=== PATIENT | male | born 1945 | race Caucasian/White ===

== ENCOUNTER 2016-11-29 10:01 | Inpatient (IN) | payer OTHER, BC ==
[2016-11-29 10:08] VITALS: BMI 31.1
--- NOTE | 2016-11-29 10:52 | PDOC ---
History of Present Illness - General Chief Complaint: Urinary Problem Stated Complaint: LOWER PELVIC PAIN, DIFFICULTY URINATING Time Seen by Provider: 11/29/16 10:28 History Source: Patient - History of Present Illness Timing/Duration: reports: constant, getting worse Quality: reports: other (pressure) Past History - Past Medical History Allergies/Adverse Reactions: Allergies Allergy/AdvReac Type Severity Reaction Status Date / Time No Known Drug Allergies Allergy Verified 11/29/16 10:07 Home Medications: Ambulatory Orders Tamsulosin HCl [Flomax] 0.4 mg PO HS 05/26/12 Amlodipine Besylate 5 mg PO DAILY 10/03/15 Anemia: No Asthma: No Cancer: Yes (PROSTATE CA WITH RADIATION) Cardiac Disorders: No CVA: No COPD: No CHF: No Dementia: No Diabetes: No GI Disorders: No Disorders: No HTN: No Hypercholesterolemia: No Liver Disease: No Seizures: No Thyroid Disease: No - Surgical History Abdominal Surgery: No Appendectomy: No Cardiac Surgery: No Cholecystectomy: Yes Lung Surgery: No Neurologic Surgery: No Orthopedic Surgery: Yes (left ankle fx as a teenager) - Psycho/Social/Smoking Cessation Hx Anxiety: No Suicidal Ideation: No Smoking History: Never smoked Have you smoked in the past 12 months: No Hx Alcohol Use: No Drug/Substance Use Hx: No Substance Use Type: None Hx Substance Use Treatment: No Review of Systems - Review of Systems Constitutional: No: Chills, Fever ABD/GI: No: Nausea, Vomiting : No: Flank Pain, Hematuria, Testicular Mass, Testicular Swelling, Testicular Pain Musculoskeletal: No: Back Pain *Physical Exam - Vital Signs Last Vital Signs Temp Pulse Resp BP Pulse Ox 98.0 F 99 H 20 123/76 97 11/29/16 10:04 11/29/16 10:04 11/29/16 10:04 11/29/16 10:04 11/29/16 10:04 - Physical Exam General Appearance: Yes: Appropriately Dressed, Moderate Distress HEENT: positive: Normal Voice Neck: positive: Supple Respiratory/Chest: negative: Respiratory Distress Gastrointestinal/Abdominal: positive: Tender (to lower abd), Soft Musculoskeletal: negative: CVA Tenderness Integumentary: positive: Dry, Warm Neurologic: positive: Fully Oriented, Alert, Normal Mood/Affect ED Treatment Course - LABORATORY CBC & Chemistry Diagram: 11/29/16 11:11/29/16 12:30 Medical Decision Making - Medical Decision Making 71 yo M, h/o prostate cancer in 2006 s/p external beam radiation w/ recurrence 2014 s/p salvage cryotherapy, f/u at [facility], here w/ urinary retention . Pt's last UO was yesterday evening and has not been able to go despite urge. No c/o lower abd pressure and n/v. No flank pain, f/c. See exam Urinary retention in pt w/ h/o prostate cancer s/p surgery/xrt Appears uncomfortable in ED but stable +ttp to lower abd w/ no distention R/o uti -jay -labs - -admit 11/29/16 10:52 11/29/16 13:[address] Paul at bedside, performed bedside ultrasound showing collapsing bladder around jay which now had ~ 800cc of tea colored urine. As per M.D, if labs are normal, patient can be discharged, otherwise admit. 11/29/16 13:43 Cr 2.8, usually nl as per pt. No old to compare in system. Wbc 15 w/ shift. Dose of abx in progress. Will contact hospitalist and admit at this time. Dr Paul aware of update *DC/Admit/Observation/Transfer Diagnosis at time of Disposition: Urinary retention UTI (urinary tract infection) Qualifiers: Urinary tract infection type: acute cystitis Hematuria presence: without hematuria Qualified Code(s): N30.00 - Acute cystitis without hematuria - Discharge Dispostion Condition at time of disposition: Stable Admit: Yes - Referrals Referrals: Trish Yu [Primary Care Provider] -
[2016-11-29 11:16] LABS: BASOPHIL 0.4 % (0-2.0); MCH 30.5 pg (25.7-33.7); MCHC 33.7 g/dl (32.0-35.9); MEAN CELL VOLUME 90.6 fl (80-96); MEAN PLT VOLUME 8.8 fl (7.5-11.1); NEUTROPHILS 84.9 % (42.8-82.8); PLATELET COUNT 164 K/MM3 (134-434); WHITE BLOOD COUNT 15.6 K/mm3 (4.0-10.0)
[2016-11-29] MEDS ORDERED: morphine CARPU-JECT 4 MG/1 ML DISP.SYRIN IVPUSH ONE (11:20)
[2016-11-29] MEDS ORDERED: morphine CARPU-JECT 4 MG/1 ML DISP.SYRIN ONE (11:25)
[2016-11-29] MEDS ORDERED: CEFTRIAXONE 1 GM in DEXTROSE 5%-WATER - 50 ML IVPB ONE (11:44)
[2016-11-29] MEDS ORDERED: CEFTRIAXONE 50 ML ONE (11:54)
[2016-11-29 11:59] LABS: URINE APPEARANCE TURBID; URINE BILIRUBIN NEGATIVE (NEGATIVE); URINE COLOR YELLOW; URINE GLUCOSE (UA) 1+ (NEGATIVE); URINE KETONE NEGATIVE (NEGATIVE); URINE NITRITE NEGATIVE (NEGATIVE); URINE UROBILINOGEN NEGATIVE E.U./dl (0.2-1.0)
[2016-11-29 12:00] LABS: URINE BLOOD 3+ (NEGATIVE); URINE LEUK ESTERASE 3+ (NEGATIVE); URINE PROTEIN 2+ (NEGATIVE)
--- NOTE | 2016-11-29 12:30 | CON.GU ---
Consult - History of Present Illness History of Present Illness: 71 yo male with prostate cancer s/p XRT 2007, s/p cryo in 2015 for recurrence. Most recent psa very low. Now admitted with urinary retention. 14fr jay placed -approximately 200cc of urine retrieved. Patient currently feeling better. No fever/chills/N/V. WBC 15 - Alcohol/Substance Use Hx Alcohol Use: No - Smoking History Smoking history: Never smoked Have you smoked in the past 12 months: No Home Medications - Allergies Allergies/Adverse Reactions: Allergies Allergy/AdvReac Type Severity Reaction Status Date / Time No Known Drug Allergies Allergy Verified 11/29/16 10:07 - Home Medications Home Medications: Ambulatory Orders Tamsulosin HCl [Flomax] 0.4 mg PO HS 05/26/12 Amlodipine Besylate 5 mg PO DAILY 10/03/15 Physical Exam- Vital Signs: Vital Signs Temperature 98.0 F 11/29/16 10:04 Pulse Rate 70 11/29/16 12:23 Respiratory Rate 17 11/29/16 12:23 Blood Pressure 127/75 11/29/16 12:23 O2 Sat by Pulse Oximetry (%) 97 11/29/16 12:23 Labs: CBC, BMP 11/29/16 11:01 11/29/16 11:01 Problem List - Problems (1) Urinary retention Assessment/Plan: cont jay to drainage, disposition pending the results of chemistries Code(s): R33.9 - RETENTION OF URINE, UNSPECIFIED
[2016-11-29 12:43] LABS: URINE BACTERIA MANY /hpf (NONE SEEN); URINE MUCUS RARE; URINE RBC 615 /hpf (0-3); URINE WBC 2070 /hpf (3-5)
[2016-11-29 13:22] LABS: ALBUMIN 3.1 g/dl (3.4-5.0); BILIRUBIN,TOTAL 0.7 mg/dL (0.2-1.0); CALCIUM 8.1 mg/dL (8.5-10.1); CREATININE 2.8 mg/dL (0.7-1.3); TOT PROT 6.4 g/dl (6.4-8.2)
[2016-11-29] MEDS ORDERED: SODIUM CHLORIDE 500 ML IV STA (13:35)
--- NOTE | 2016-11-29 14:15 | HP ---
CHIEF COMPLAINT: unable to urinate for day and a half PCP: Dr. Yu Urologist: Dr. Escalona HISTORY OF PRESENT ILLNESS: 71 yr old man with a history of prostate cancer, hx of UTI, HTN presents with decreased urine output since yesterday. For past three days he has been having lower back pain which is his sign for developing UTI. He woke up multiple times last night with urgency and strain but no urine output. He had stopped drinking water for past day as he was making less and and less urine with more urgency and suprapubic pain. Had two episodes of nonbloody nonbilous small amount of vomiting earlier today. Took "Contac" to prevent cold about 1 month ago, says he stopped when warning label indicated not take if hx of prostate inflammed, otherwise denies any new food or medicine. Denies fever, chills, penile discharge, recent aspirin/aleve/motrin use. Has not been sexually active for past year due to decreased libido. does not recall last UTI or last antibiotic use. recalls last time this happened , he had a jay placed for a week. ER course was notable for: (1) wbc of 15.6 (2) Dr. jean-baptiste placed 14fr jay, approximately 200cc of urine retrieved. (3) Cr 2.8 Recent Travel: none PAST MEDICAL HISTORY: prostate cancer: initial dx in 2006 received radiation, reoccurrence in 2014 received cryotherapy PAST SURGICAL HISTORY: left ankle surgery in his teens cholecystectomy in his teens Colonoscopy 7 yrs ago without abnormal findings. Social History: Smoking: denies Alcohol: denies Drugs: denies Family History: brother age 58 from stroke, Father age 63 from stroke, mother age 83 from stroke Allergies No Known Drug Allergies Allergy (Verified 11/29/16 10:07) HOME MEDICATIONS: Medication Instructions Recorded Tamsulosin HCl [Flomax] 0.4 mg PO HS 05/26/12 Amlodipine Besylate 5 mg PO DAILY 10/03/15 REVIEW OF SYSTEMS CONSTITUTIONAL: Absent: fever, chills, diaphoresis, generalized weakness, malaise, loss of appetite, weight change HEENT: Absent: rhinorrhea, nasal congestion, throat pain, throat swelling, difficulty swallowing, mouth swelling, ear pain, eye pain, visual changes CARDIOVASCULAR: Absent: chest pain, syncope, palpitations, irregular heart rate, lightheadedness , peripheral edema RESPIRATORY: Absent: cough, shortness of breath, dyspnea with exertion, orthopnea, wheezing, stridor, hemoptysis GASTROINTESTINAL: Present: vomiting Absent: abdominal pain, abdominal distension, nausea, diarrhea, constipation, melena, hematochezia GENITOURINARY: Present:urgency Absent: dysuria, frequency, hesitancy, hematuria, flank pain, genital pain MUSCULOSKELETAL: Absent: myalgia, arthralgia, joint swelling, back pain, neck pain SKIN: Absent: rash, itching, pallor HEMATOLOGIC/IMMUNOLOGIC: Absent: easy bleeding, easy bruising, lymphadenopathy, frequent infections ENDOCRINE: Absent: unexplained weight gain, unexplained weight loss, heat intolerance, cold intolerance NEUROLOGIC: Absent: headache, focal weakness or paresthesias, dizziness, unsteady gait, seizure, mental status changes, bladder or bowel incontinence PSYCHIATRIC: Absent: anxiety, depression, suicidal or homicidal ideation, hallucinations. PHYSICAL EXAMINATION Vital Signs - 24 hr 11/29/16 11/29/16 10:04 12:23 Temperature 98.0 F Pulse Rate 99 H Pulse Rate [ 70 Right Radial] Respiratory 20 17 Rate Blood Pressure 123/76 Blood Pressure 127/75 [Left Arm] O2 Sat by Pulse 97 97 Oximetry (%) GENERAL: Awake, alert, and fully oriented, in no acute distress. HEAD: Normal with no signs of trauma. EYES: Pupils equal, round and reactive to light, extraocular movements intact, sclera anicteric, conjunctiva clear. No lid lag. EARS, NOSE, THROAT: Ears normal, nares patent, oropharynx clear without exudates. Moist mucous membranes. NECK: Normal range of motion, supple without lymphadenopathy, JVD, or masses. LUNGS: Breath sounds equal, clear to auscultation bilaterally. No wheezes, and no crackles. No accessory muscle use. HEART: Regular rate and rhythm, normal S1 and S2 without murmur, rub or gallop. ABDOMEN: Soft, nontender, not distended, normoactive bowel sounds, no guarding, no rebound, no masses. well healed abdominal scar in RUQ. MUSCULOSKELETAL: Normal range of motion at all joints. No bony deformities or tenderness. No CVA tenderness. well healed scar on medial left ankle. UPPER EXTREMITIES: 2+ pulses, warm, well-perfused. No cyanosis. No clubbing. Cap refill <2 seconds. No peripheral edema. LOWER EXTREMITIES: 2+ pulses, warm, well-perfused. No calf tenderness. No peripheral edema. NEUROLOGICAL: Normal speech. Normal gait. PSYCHIATRIC: Cooperative. Good eye contact. Appropriate mood and affect. SKIN: Warm, dry, normal turgor, no rashes or lesions noted. Jay in place draining dark tea colored urine. Laboratory Results - last 24 hr 11/29/16 11/29/16 11/29/16 11:01 11:01 11:52 WBC 15.6 H RBC 4.39 Hgb 13.4 Hct 39.8 MCV 90.6 MCHC 33.7 RDW 14.0 Plt Count 164 MPV 8.8 Neutrophils % 84.9 H Lymphocytes % 3.1 L Monocytes % 11.6 H Eosinophils % 0.0 Basophils % 0.4 Sodium Cancelled Potassium Cancelled Chloride Cancelled Carbon Dioxide Cancelled Anion Gap Cancelled BUN Cancelled Creatinine Cancelled Creat Clearance w eGFR Cancelled Random Glucose Cancelled Calcium Cancelled Total Bilirubin Cancelled AST Cancelled ALT Cancelled Alkaline Phosphatase Cancelled Total Protein Cancelled Albumin Cancelled Urine Color Yellow Urine Appearance Turbid Urine pH 6.0 Ur Specific [place] 1.010 Urine Protein 2+ H Urine Glucose (UA) 1+ H Urine Ketones Negative Urine Blood 3+ H Urine Nitrite Negative Urine Bilirubin Negative Urine Urobilinogen Negative Ur Leukocyte Esterase 3+ H Urine RBC 615 Urine WBC 2070 Ur Epithelial Cells Rare Urine Bacteria Many Urine Mucus Rare 11/29/16 12:30 WBC RBC Hgb Hct MCV MCHC RDW Plt Count MPV Neutrophils % Lymphocytes % Monocytes % Eosinophils % Basophils % Sodium 135 L Potassium 4.3 Chloride 100 Carbon Dioxide 22 Anion Gap 13 BUN 39 H Creatinine 2.8 H Creat Clearance w eGFR 22.45 Random Glucose 96 Calcium 8.1 L Total Bilirubin 0.7 AST 72 H ALT 35 Alkaline Phosphatase 69 Total Protein 6.4 Albumin 3.1 L Urine Color Urine Appearance Urine pH Ur Specific [place] Urine Protein Urine Glucose (UA) Urine Ketones Urine Blood Urine Nitrite Urine Bilirubin Urine Urobilinogen Ur Leukocyte Esterase Urine RBC Urine WBC Ur Epithelial Cells Urine Bacteria Urine Mucus ASSESSMENT/PLAN: 71 yr old man with hx of prostate cancer s/p treatment, hx of recurrent UTIs presents with decreased urine output for one day. #UTI with urinary retention and hematuria and leucocytosis - Jay placed by dr. ficcazola - rocephin 2gm daily --start 11/29 - renal ultrasound to r/o hydronephrosis - urine cx pending - flomax 0.4mg daily #Elevated Cr 2.8, unknown baseline, but patient says that this is not his normal value. likely post-renal cause from obstruction due to bladder retention - IVF NS 100ml/hr - urine osm, serum osm, urine Na+ to evaluate cause - repeat BMP in the AM - Dr. Cast consulted - avoid nephro toxic medications #HTN - amlodipine 5mg po daily #Hyponatremia - 135, mild, IVF NS #Corrected ca, wnl, 8.82 # AST elevated, suspicious for renal cause, will repeat in the AM, if continuos to be elevated, will investigate for live abnormality diet: low sodium DVt; SCD's for now given hematuria, no medical anticoagulation Visit type - Emergency Visit Emergency Visit: Yes ED Registration Date: 11/29/16 Care time: The patient presented to the Emergency Department on the above date and was hospitalized for further evaluation of their emergent condition. - New Patient This patient is new to me today: Yes Date on this admission: 11/29/16 - Critical Care Critical Care patient: No
[2016-11-29] MEDS ORDERED: SODIUM CHLORIDE 1,000 ML IV STA (15:28)
--- NOTE | 2016-11-29 15:37 | PN ---
Teaching Attending Note Name of Resident: Gordon Wei ATTENDING PHYSICIAN STATEMENT I saw and evaluated the patient. I reviewed the resident's note and discussed the case with the resident. I agree with the resident's findings and plan as documented. SUBJECTIVE: OBJECTIVE: Vital Signs Temperature 97.7 F 11/29/16 15:22 Pulse Rate 80 11/29/16 15:22 Respiratory Rate 18 11/29/16 15:22 Blood Pressure 129/58 11/29/16 15:22 O2 Sat by Pulse Oximetry (%) 99 11/29/16 15:22 GENERAL: Awake, alert, and fully oriented, in no acute distress. HEAD: Normal with no signs of trauma. EYES: Pupils equal, round and reactive to light, extraocular movements intact, sclera anicteric, conjunctiva clear. No lid lag. EARS, NOSE, THROAT: Ears normal, nares patent, oropharynx clear without exudates. Moist mucous membranes. NECK: Normal range of motion, supple without lymphadenopathy, JVD, or masses. LUNGS: Breath sounds equal, clear to auscultation bilaterally. No wheezes, and no crackles. No accessory muscle use. HEART: Regular rate and rhythm, normal S1 and S2 without murmur, rub or gallop. ABDOMEN: Soft, nontender, not distended, normoactive bowel sounds, no guarding, no rebound, no masses. well healed abdominal scar in RUQ. MUSCULOSKELETAL: Normal range of motion at all joints. No bony deformities or tenderness. well healed scar on medial left ankle. EXTREMITIES: 2+ pulses, warm, well-perfused. No calf tenderness. No peripheral edema. NEUROLOGICAL: Normal speech. Normal gait. PSYCHIATRIC: Cooperative. Good eye contact. Appropriate mood and affect. SKIN: Warm, dry, normal turgor, no rashes or lesions noted. Jay in place draining dark tea colored urine. CBCD WBC 15.6 K/mm3 (4.0-10.0) H 11/29/16 11:01 RBC 4.39 M/mm3 (4.00-5.60) 11/29/16 11:01 Hgb 13.4 GM/dL (11.7-16.9) 11/29/16 11:01 Hct 39.8 % (35.4-49) 11/29/16 11:01 MCV 90.6 fl (80-96) 11/29/16 11:01 MCHC 33.7 g/dl (32.0-35.9) 11/29/16 11:01 RDW 14.0 % (11.9-15.9) 11/29/16 11:01 Plt Count 164 K/MM3 (134-434) 11/29/16 11:01 MPV 8.8 fl (7.5-11.1) 11/29/16 11:01 CMP Sodium 135 mmol/L (136-145) L 11/29/16 12:30 Potassium 4.3 mmol/L (3.5-5.1) 11/29/16 12:30 Chloride 100 mmol/L (98-107) 11/29/16 12:30 Carbon Dioxide 22 mmol/L (21-32) 11/29/16 12:30 Anion Gap 13 (8-16) 11/29/16 12:30 BUN 39 mg/dL (7-18) H 11/29/16 12:30 Creatinine 2.8 mg/dL (0.7-1.3) H 11/29/16 12:30 Creat Clearance w eGFR 22.45 (>60) 11/29/16 12:30 Random Glucose 96 mg/dL (74-106) 11/29/16 12:30 Calcium 8.1 mg/dL (8.5-10.1) L 11/29/16 12:30 Total Bilirubin 0.7 mg/dL (0.2-1.0) 11/29/16 12:30 AST 72 U/L (15-37) H 11/29/16 12:30 ALT 35 U/L (12-78) 11/29/16 12:30 Alkaline Phosphatase 69 U/L (45-117) 11/29/16 12:30 Total Protein 6.4 g/dl (6.4-8.2) 11/29/16 12:30 Albumin 3.1 g/dl (3.4-5.0) L 11/29/16 12:30 Current Medications Generic Name Dose Route Start Last Admin Trade Name Freq PRN Reason Stop Dose Admin Amlodipine Besylate 5 mg 11/30/16 10:00 Norvasc - PO DAILY MARCELO Enoxaparin Sodium 40 mg 11/30/16 10:00 Lovenox - SQ DAILY MARCELO Sodium Chloride 1,000 mls @ 1,000 mls/hr 11/29/16 15:28 Normal Saline - IV 11/29/16 16:27 ASDIR STA Tamsulosin HCl 0.4 mg 11/29/16 22:00 Flomax - PO HS [facility] Medication Instructions Recorded Tamsulosin HCl [Flomax] 0.4 mg PO HS 05/26/12 Amlodipine Besylate 5 mg PO DAILY 10/03/15 Urine Test Results Urine Color Yellow 11/29/16 11:52 Urine Appearance Turbid 11/29/16 11:52 Urine pH 6.0 (5.0-8.0) 11/29/16 11:52 Ur Specific [place] 1.010 (1.001-1.035) 11/29/16 11:52 Urine Protein 2+ (NEGATIVE) H 11/29/16 11:52 Urine Glucose (UA) 1+ (NEGATIVE) H 11/29/16 11:52 Urine Ketones Negative (NEGATIVE) 11/29/16 11:52 Urine Blood 3+ (NEGATIVE) H 11/29/16 11:52 Urine Nitrite Negative (NEGATIVE) 11/29/16 11:52 Urine Bilirubin Negative (NEGATIVE) 11/29/16 11:52 Ur Leukocyte Esterase 3+ (NEGATIVE) H 11/29/16 11:52 Urine RBC 615 /hpf (0-3) 11/29/16 11:52 Urine WBC 2070 /hpf (3-5) 11/29/16 11:52 Ur Epithelial Cells Rare /hpf (FEW) 11/29/16 11:52 Urine Bacteria Many /hpf (NONE SEEN) 11/29/16 11:52 Urine Mucus Rare 11/29/16 11:52 ASSESSMENT AND PLAN: Patient is a 71 yo M, with h/o prostate cancer in 2006 s/p external beam radiation w/ recurrence 2014 s/p salvage cryotherapy, presented to ED. w/ urinary retention . Patient last urinated yesterday evening and has not been able to go despite urge. presented with difficulty to urinate and was found to have 800cc of urine post jay catheter # Acute UTI with acute leukocytosis septic w/u . hx of recurrent UTIs. with hx if rtx due to his prostate Ca , ivf at 100cc/hr # Hematuria possible due to jay catheter # Obtructive uropathy s/p Jay catheter with 800cc of urine Dr.ficazolla consult appreciated #Acute renal failure cr. 1.8 due to obstructive uropathy will get Kidney US r/o any kidney pathology/hydronephrosis nephro consult DVT Px: SCDs only, patient has hematuria ; will hold off on anticoagulation for now
[2016-11-29] MEDS: TAMSULOSIN HCL 0.4 MG CAP.ER.24H (FP) PO SCH (21:35)
[2016-11-29] MEDS: SODIUM CHLORIDE 1,000 ML IV SCH (21:36)
[2016-11-30 07:18] LABS: BASOPHIL 0.5 % (0-2.0); EOSINOPHIL 0.5 % (0-4.5); MCH 31.4 pg (25.7-33.7); MCHC 34.7 g/dl (32.0-35.9); MEAN CELL VOLUME 90.5 fl (80-96); MEAN PLT VOLUME 9.3 fl (7.5-11.1); PLATELET COUNT 180 K/MM3 (134-434); RDW 14.4 % (11.9-15.9); WHITE BLOOD COUNT 10.4 K/mm3 (4.0-10.0)
[2016-11-30 07:56] LABS: ALBUMIN 2.7 g/dl (3.4-5.0); ALK PHOS 56 U/L (45-117); ANION GAP 10 (8-16); BILIRUBIN,TOTAL 0.6 mg/dL (0.2-1.0); CALCIUM 8.7 mg/dL (8.5-10.1); CO2 25 mmol/L (21-32); CREATININE 1.1 mg/dL (0.7-1.3); GLUCOSE,RANDOM 88 mg/dL (74-106); SGOT/AST 66 U/L (15-37); SGPT/ALT 35 U/L (12-78); TOT PROT 5.9 g/dl (6.4-8.2)
--- NOTE | 2016-11-30 09:33 | EKG ---
Test Reason : Blood Pressure : / mmHG Vent. Rate : 081 BPM Atrial Rate : 081 BPM P-R Int : 170 ms QRS Dur : 136 ms QT Int : 426 ms P-R-T Axes : 053 -57 076 degrees QTc Int : 494 ms POOR DATA QUALITY, INTERPRETATION MAY BE ADVERSELY AFFECTED SINUS RHYTHM WITH PREMATURE ATRIAL COMPLEXES LEFT AXIS DEVIATION LEFT VENTRICULAR HYPERTROPHY LEFT BUNDLE BRANCH BLOCK ABNORMAL ECG WHEN COMPARED WITH ECG OF 17-SEP-2015 11:57, PREMATURE ATRIAL COMPLEXES ARE NOW PRESENT MINIMAL CRITERIA FOR SEPTAL INFARCT ARE NO LONGER PRESENT Confirmed by ROBBIE GALVEZ MD ([id number]) on 11/30/2016 9:33:33 AM Referred By: Confirmed By:ROBBIE GALVEZ MD
[2016-11-30] MEDS ORDERED: ENOXAPARIN NA (PORCINE) 40 MG/0.4 ML DISP.SYRIN SQ SCH (10:00)
[2016-11-30] MEDS: cefTRIAXone 2 GM/100 ML BAG (PRE-DOCKED) IVPB SCH (10:08)
[2016-11-30] MEDS: amLODIPine BESYLATE 5 MG TABLET (FP) PO SCH (10:08)
[2016-11-30] MEDS: SODIUM CHLORIDE 1,000 ML IV SCH ×2 (10:08→12:33)
--- NOTE | 2016-11-30 12:27 | PN ---
Progress Note (short form) - Note Progress Note: Subjective: no fever or chills , no ABd pain . He feels better today . Objective: Vital Signs: Last Vital Signs Temp Pulse Resp BP Pulse Ox 98 F 70 18 126/63 99 11/30/16 06:05 11/30/16 06:05 11/30/16 06:05 11/30/16 06:05 11/29/16 15:22 Physical Exam: NAD CV : RRR, NO mRG Lungs : CTAB ext : no edema Abd : soft, NT, ND , NL BS . jay in Labs: Laboratory Results - last 24 hr 11/29/16 11/29/16 11/30/16 11:52 12:30 06:00 WBC 10.4 H D RBC 4.15 Hgb 13.0 Hct 37.6 MCV 90.5 MCHC 34.7 RDW 14.4 Plt Count 180 MPV 9.3 Neutrophils % 79.0 Lymphocytes % 8.0 D Monocytes % 12.0 H Eosinophils % 0.5 D Basophils % 0.5 Sodium 135 L Potassium 4.3 Chloride 100 Carbon Dioxide 22 Anion Gap 13 BUN 39 H Creatinine 2.8 H Creat Clearance w eGFR 22.45 Random Glucose 96 Calcium 8.1 L Total Bilirubin 0.7 AST 72 H ALT 35 Alkaline Phosphatase 69 Total Protein 6.4 Albumin 3.1 L Urine RBC 615 Urine WBC 2070 Ur Epithelial Cells Rare Urine Bacteria Many Urine Mucus Rare 11/30/16 06:00 WBC RBC Hgb Hct MCV MCHC RDW Plt Count MPV Neutrophils % Lymphocytes % Monocytes % Eosinophils % Basophils % Sodium 143 Potassium 3.8 Chloride 108 H Carbon Dioxide 25 Anion Gap 10 BUN 21 H D Creatinine 1.1 D Creat Clearance w eGFR > 60 Random Glucose 88 Calcium 8.7 Total Bilirubin 0.6 AST 66 H ALT 35 Alkaline Phosphatase 56 Total Protein 5.9 L Albumin 2.7 L Urine RBC Urine WBC Ur Epithelial Cells Urine Bacteria Urine Mucus Microbiology 11/29/16 11:52 Urine Culture - Final Urine - Urine Clean Catch NO GROWTH OBTAINED Assessment/Plan: 71 Y/O gentleman , with h/o HTN, previously treated prostate cancer, and recurrent UTIs who presneted with urinary retention . He was found to have UTI 1- Complicated UTI: Already clinically better and leukocytosis improved . - unfortunately urine cx was sent after ABx were given and showed no growth. - will cont Ceftriaxone empirically. - will try to obtain previous urine cx from urology office ( 3 months ago) 2- YUDY : due to urinary retention and volume depletion . improved with jay and hydration - decrease IVF to 75 cc/hr - repeat level in am - COnt jay 3- Urinary retention: due to UTI - Treat UTI. - COnt flomax - Add finasteride - will attempt removing jay tomorrow 4- HTN: Cont Norvasc Dispo: anticipate dc tomorrow Visit type - Emergency Visit Emergency Visit: Yes ED Registration Date: 11/29/16 Care time: The patient presented to the Emergency Department on the above date and was hospitalized for further evaluation of their emergent condition. - New Patient This patient is new to me today: No - Critical Care Critical Care patient: No
[2016-11-30] MEDS: FINASTERIDE 5 MG TABLET (FP) PO SCH (12:32)
[2016-11-30 14:40] LABS: OSMOLALITY,SERUM 287 mosm/kg (278-305)
--- NOTE | 2016-11-30 14:40 | CON.NEP ---
Consult Consult Specialty:: Nephrology Referred by:: Dr Sanders Reason for Consultation:: YUDY - History of Present Illness Chief Complaint: Urinary retention with abdominal pain History of Present Illness: 71 yo male with H/O HTN, and prostate cancer s/p XRT 2006, s/p cryo in 2015 for recurrence. Now admitted with urinary retention following a recent URI for which he use a decongestant and now felt to have a UTI. Jay catheter inserted, Abx and IVF initiated and as a result today's renal function has improved. He denies prior kidney problems. No NSAID use - History Source History Provided By: Patient - Past Medical History Cardio/Vascular: Yes: HTN Renal/: Yes: Cancer, Other (Prostate) - Alcohol/Substance Use Hx Alcohol Use: No - Smoking History Smoking history: Never smoked Have you smoked in the past 12 months: No Home Medications - Allergies Allergies/Adverse Reactions: Allergies Allergy/AdvReac Type Severity Reaction Status Date / Time No Known Drug Allergies Allergy Verified 11/29/16 10:07 - Home Medications Home Medications: Ambulatory Orders Tamsulosin HCl [Flomax] 0.4 mg PO HS 05/26/12 Amlodipine Besylate 5 mg PO DAILY 10/03/15 Nephrology Consult - Height Height: 6 ft - Weight Weight: 230 lb - BMI Body Mass Index (BMI): 31.1 - Lab Results CBC,BMP: CBC, BMP 11/30/16 06:00 11/30/16 06:00 Laboratory Tests 11/29/16 12:30 BUN 39 H Creatinine 2.8 H U/A: Laboratory Tests 11/29/16 11:52 Urine Color Yellow Urine Appearance Turbid Urine pH 6.0 Ur Specific [place] 1.010 Urine Protein 2+ H Urine Glucose (UA) 1+ H Urine Ketones Negative Urine Blood 3+ H Urine Nitrite Negative Urine Bilirubin Negative Urine Urobilinogen Negative Ur Leukocyte Esterase 3+ H Urine RBC 615 Urine WBC 2070 Ur Epithelial Cells Rare Urine Bacteria Many Urine Mucus Rare Anion Gap: Anion Gap Anion Gap 10 (8-16) 11/30/16 06:00 - Imaging Chest X-ray: Report Reviewed, Other (Large heart) EKG: Report Reviewed, Other (NSR with APC , LAHB, LVH, LBBB) - Physical Examination Vital Signs: Vital Signs Temperature 98.1 F 11/30/16 13:53 Pulse Rate 70 11/30/16 13:53 Respiratory Rate 20 11/30/16 13:53 Blood Pressure 123/66 11/30/16 13:53 O2 Sat by Pulse Oximetry (%) 99 11/29/16 15:22 Constitutional: Yes: Well Nourished, No Distress Cardiovascular: Yes: S1, S2. No: JVD, Gallop, S3 Respiratory: Yes: CTA Bilaterally Gastrointestinal: Yes: Soft, Abdomen, Obese. No: Tenderness, Rebound Renal/: Yes: Jay Present Edema: No Neurological: Yes: Alert, Oriented Assessment/Plan Impression YUDY from [facility] improved with the jay, IVF and ABX Pyuria with Negative UC while on abx H/O Prostate Ca Proteinuria with active infection HTN controlled Obesity Plan Blood cultures pending IVF and Abx as ordered Consider a voiding trial in am For urine protein/Cr ratio and depending on results pt may need a work up for the proteinuria Renal and U Bladder US done and results pending Wt loss Amlodipine as ordered for now Thank You Will Follow Dr Scott
[2016-11-30 21:15] LABS: URINE CREATININE 80.1 mg/dL
[2016-11-30] MEDS: TAMSULOSIN HCL 0.4 MG CAP.ER.24H (FP) PO SCH (21:18)
[2016-12-01] MEDS: SODIUM CHLORIDE 1,000 ML IV SCH (01:48)
[2016-12-01 07:18] LABS: BASOPHIL 0.6 % (0-2.0); EOSINOPHIL 1.4 % (0-4.5); MCHC 33.9 g/dl (32.0-35.9); MEAN CELL VOLUME 91.6 fl (80-96); MEAN PLT VOLUME 8.7 fl (7.5-11.1); NEUTROPHILS 76.2 % (42.8-82.8); PLATELET COUNT 185 K/MM3 (134-434); RDW 14.1 % (11.9-15.9); WHITE BLOOD COUNT 8.4 K/mm3 (4.0-10.0)
[2016-12-01 07:53] LABS: CALCIUM 8.8 mg/dL (8.5-10.1); CREATININE 0.6 mg/dL (0.7-1.3)
--- NOTE | 2016-12-01 08:41 | PN ---
Physical Exam: SUBJECTIVE: Patient seen and examined No complaints. Clear yellow urine in jay. OBJECTIVE: Vital Signs Period Temp Pulse Resp BP Sys/Miller Pulse Ox Last 24 Hr 98.1 F-98.3 F 70-76 20-20 123-133/53-73 95-95 GENERAL: The patient is awake, alert, and fully oriented, in no acute distress. LUNGS: Breath sounds equal, clear to auscultation bilaterally, no wheezes, no crackles, no accessory muscle use. HEART: Regular rate and rhythm, S1, S2 without murmur, rub or gallop. ABDOMEN: Soft, nontender, nondistended, normoactive bowel sounds, no guarding, no rebound, no suprapubic fullness/tenderness EXTREMITIES: 2+ pulses, warm, well-perfused, no edema. NEUROLOGICAL: Normal speech, gait normal Laboratory Results - last 24 hr 11/30/16 12/01/16 12/01/16 18:25 05:52 05:52 WBC 8.4 RBC 4.09 Hgb 12.7 Hct 37.5 MCV 91.6 MCHC 33.9 RDW 14.1 Plt Count 185 MPV 8.7 Neutrophils % 76.2 Lymphocytes % 10.3 D Monocytes % 11.5 H Eosinophils % 1.4 D Basophils % 0.6 Sodium 143 Potassium 4.0 Chloride 106 Carbon Dioxide 29 Anion Gap 8 BUN 12 D Creatinine 0.6 L D Random Glucose 101 Calcium 8.8 U Random Total Protein 82 H Urine Creatinine 80.1 Protein/Creatinin Ratio 0.976 Active Medications Generic Name Dose Route Start Last Admin Trade Name Freq PRN Reason Stop Dose Admin Amlodipine Besylate 5 mg 11/30/16 10:00 11/30/16 10:08 Norvasc - PO 5 mg DAILY MARCELO Administration Ceftriaxone Sodium 2 gm 11/30/16 10:00 11/30/16 10:08 Rocephin 2gm Ivpb (Pre-Docked) IVPB 2 gm DAILY MARCELO Administration Finasteride 5 mg 11/30/16 12:15 11/30/16 12:32 Proscar - PO 5 mg DAILY MARCELO Administration Sodium Chloride 1,000 mls @ 75 mls/hr 11/30/16 12:17 12/01/16 01:48 Normal Saline - IV 75 mls/hr ASDIR MARCELO Administration Tamsulosin HCl 0.4 mg 11/29/16 22:00 11/30/16 21:18 Flomax - PO 0.4 mg HS MARCELO Administration ASSESSMENT/PLAN: 71 yr old man with hx of prostate cancer s/p treatment, hx of recurrent UTIs presents with decreased urine output for one day. #UTI with urinary retention and hematuria and leucocytosis - improved - voiding trial today - rocephin 2gm daily --start 11/29 - renal ultrasound - negative for hydronephrosis - urine cx NGTD - flomax 0.4mg daily - finasteride 5mg po qd #Elevated Cr 2.8, - resolved #HTN - amlodipine 5mg po daily diet: low sodium DVt; SCD's for now given hematuria, no medical anticoagulation Visit type - Emergency Visit Emergency Visit: No - New Patient This patient is new to me today: No - Critical Care Critical Care patient: No - Discharge Referral Referred to [facility] Med P.C.: No
[2016-12-01] MEDS: amLODIPine BESYLATE 5 MG TABLET (FP) PO SCH (09:15)
[2016-12-01] MEDS: cefTRIAXone 2 GM/100 ML BAG (PRE-DOCKED) IVPB SCH (09:16)
[2016-12-01] MEDS: FINASTERIDE 5 MG TABLET (FP) PO SCH (09:16)
--- NOTE | 2016-12-01 13:46 | PN ---
Teaching Attending Note Name of Resident: Gordon Wei ATTENDING PHYSICIAN STATEMENT I saw and evaluated the patient. I reviewed the resident's note and discussed the case with the resident. I agree with the resident's findings and plan as documented. SUBJECTIVE: No fever or chills , no abd pain. OBJECTIVE: NAD CV : RRR Lungs : CTAB ext : noedema ABd : soft, NT, ND , NL BS , jay in ASSESSMENT AND PLAN: 71 Y/O gentleman , with h/o HTN, previously treated prostate cancer, and recurrent UTIs who presneted with urinary retention . He was found to have UTI 1- Complicated UTI: much improved - unfortunately urine cx was sent after ABx were given and showed no growth. - will cont empiric ABx treatment . willl obtian previous urine cx reports from urology office , to help with guiding the treatment - remove jay for voiding trial and post void bladder scan 2- YUDY : due to urinary retention and volume depletion . resolved - dc iVF - proteinuria < 1 g /day . Likely due to infection. 3- Urinary retention: due to UTI - cont flomax and finasteride. dc jay f/u with urology 4- HTN: Cont Norvasc dispo : if able to urinate will dc , if not will place jay back and dc with jay to f/u with Uro
--- NOTE | 2016-12-01 17:17 | PN ---
Progress Note, Physician History of Present Illness: Pt seen and examined at bedside. He is awake and alert. He is tolerating the voiding trial. - Current Medication List Current Medications: Active Medications Amlodipine Besylate (Norvasc -) 5 mg PO DAILY MARCELO Last Admin: 12/01/16 09:15 Dose: 5 mg Ceftriaxone Sodium (Rocephin 2gm Ivpb (Pre-Docked)) 2 gm IVPB DAILY MARCELO Last Admin: 12/01/16 09:16 Dose: 2 gm Finasteride (Proscar -) 5 mg PO DAILY MARCELO Last Admin: 12/01/16 09:16 Dose: 5 mg Tamsulosin HCl (Flomax -) 0.4 mg PO HS MARCELO Last Admin: 11/30/16 21:18 Dose: 0.4 mg - Objective Vital Signs: Vital Signs Temperature 97.4 F L 12/01/16 14:10 Pulse Rate 73 12/01/16 14:10 Respiratory Rate 20 12/01/16 14:10 Blood Pressure 144/67 12/01/16 14:10 O2 Sat by Pulse Oximetry (%) 95 11/30/16 21:00 Constitutional: Yes: Calm Eyes: Yes: Conjunctiva Clear HENT: Yes: Atraumatic Cardiovascular: Yes: S1, S2 Respiratory: Yes: CTA Bilaterally Gastrointestinal: Yes: Normal Bowel Sounds, Soft Genitourinary: Yes: WNL Musculoskeletal: Yes: WNL Edema: No Neurological: Yes: Oriented Psychiatric: Yes: Oriented Labs: CBC, BMP 12/01/16 05:52 12/01/16 05:52 Assessment/Plan Current Medications Generic Name Dose Route Start Last Admin Trade Name Gardenia PRN Reason Stop Dose Admin Amlodipine Besylate 5 mg 11/30/16 10:00 12/01/16 09:15 Norvasc - PO 5 mg DAILY MARCELO Administration Ceftriaxone Sodium 2 gm 11/30/16 10:00 12/01/16 09:16 Rocephin 2gm Ivpb (Pre-Docked) IVPB 2 gm DAILY MARCELO Administration Finasteride 5 mg 11/30/16 12:15 12/01/16 09:16 Proscar - PO 5 mg DAILY MARCELO Administration Tamsulosin HCl 0.4 mg 11/29/16 22:00 11/30/16 21:18 Flomax - PO 0.4 mg HS MARCELO Administration Impression 1. YUDY resolving 2. urinary retention 3. pyuria 4. hx prostate cancer 5. HTN Plan - renal function is stable - follow cultures - cont abx - pt is tolerating voiding trial so far - monitor BP
--- NOTE | 2016-12-01 18:30 | DS ---
Physical Exam: SUBJECTIVE: Patient seen and examined. no complaints. Had multiple voids with sustained stream without hematuria, dysuria. post-void bladder scan with 0mL, no suprapubic fullness/tenderness, nonpalpable bladder on physical exam post-void. patient stable for discharge and follow-up as outpatient. OBJECTIVE: Vital Signs Period Temp Pulse Resp BP Sys/Miller Pulse Ox Last 24 Hr 97.4 F-98.2 F 67-73 20-20 133-144/67-87 95 PHYSICAL EXAM GENERAL: The patient is awake, alert, and fully oriented, in no acute distress. LUNGS: Breath sounds equal, clear to auscultation bilaterally, no wheezes, no crackles, no accessory muscle use. HEART: Regular rate and rhythm, S1, S2 without murmur, rub or gallop. ABDOMEN: Soft, nontender, nondistended, normoactive bowel sounds, no guarding, no rebound, no suprapubic fullness/tenderness, no penile tenderness/discharge EXTREMITIES: 2+ pulses, warm, well-perfused, no edema. NEUROLOGICAL: Normal speech, gait normal LABS Laboratory Tests 11/29/16 11/29/16 11/29/16 11:01 11:52 12:30 WBC 15.6 H Hgb 13.4 Hct 39.8 Plt Count 164 Sodium 135 L Potassium Chloride Carbon Dioxide BUN 39 H Creatinine 2.8 H Serum Osmolality Urine Protein 2+ H Urine Glucose (UA) 1+ H Urine Blood 3+ H Ur Leukocyte Esterase 3+ H Urine RBC 615 Urine WBC 2070 Ur Epithelial Cells Rare Urine Bacteria Many Urine Mucus Rare Urine Osmolality U Random Total Protein Urine Creatinine Protein/Creatinin Ratio 11/29/16 11/30/16 11/30/16 13:30 06:00 18:25 WBC 10.4 H D Hgb 13.0 Hct 37.6 Plt Count 180 Sodium Potassium Chloride Carbon Dioxide BUN Creatinine Serum Osmolality 287 Urine Protein Urine Glucose (UA) Urine Blood Ur Leukocyte Esterase Urine RBC Urine WBC Ur Epithelial Cells Urine Bacteria Urine Mucus Urine Osmolality 276 L U Random Total Protein 82 H Urine Creatinine 80.1 Protein/Creatinin Ratio 0.976 12/01/16 12/01/16 05:52 05:52 WBC 8.4 Hgb 12.7 Hct 37.5 Plt Count 185 Sodium 143 Potassium 4.0 Chloride 106 Carbon Dioxide 29 BUN 12 D Creatinine 0.6 L D Serum Osmolality Urine Protein Urine Glucose (UA) Urine Blood Ur Leukocyte Esterase Urine RBC Urine WBC Ur Epithelial Cells Urine Bacteria Urine Mucus Urine Osmolality U Random Total Protein Urine Creatinine Protein/Creatinin Ratio Microbiology 11/29/16 17:00 Blood - Peripheral Venous Blood Culture - Preliminary NO GROWTH OBTAINED AFTER 48 HOURS, INCUBATION TO CONTINUE FOR 3 DAYS. 11/29/16 16:00 Blood - Peripheral Venous Blood Culture - Preliminary NO GROWTH OBTAINED AFTER 48 HOURS, INCUBATION TO CONTINUE FOR 3 DAYS. 11/29/16 11:52 Urine - Urine Clean Catch Urine Culture - Final NO GROWTH OBTAINED IMAGING Chest xray: negative for acute pathology Renal ultrasound: There is no hydronephrosis. The kidneys appear unremarkable in position, cortical thickness and echogenicity and size. Each kidney measures approximately 12 cm in length. No gross mass lesion or calculus is identified. A 2.7 cm left renal lower pole cortical cyst is noted. There is no definite perirenal fluid collection. Impression: No hydronephrosis is identified. There is no obvious mass lesion or calculus. HOSPITAL COURSE: Date of Admission:11/29/16 - Date of Discharge: 12/01/16 71 yr old man with hx of prostate cancer s/p treatment, hx of recurrent UTIs presents with decreased urine output for one day. He was found to have en elevated cbc, mild hyponatremia and elevated creatinine. He was a afebrile, vital signs stable. Sewell was placed in the ED by Dr. Abdul which yielded 800cc of retained tea colored urine. He was started on rocephin IV 2gm daily for 3 days during the hospital stay.Renal ultrasound was negative for hydronephrosis. His white count trended down. His creatinine improved. He remained afebrile. Sewell was removed after 2 days on 12/01. He voided several times without difficulty. Post-void bladder scan was negative for residual volume. Urine cultures were negative for organism, Dr. Fuentes's office did not have pervious culture results and Dr. Yu's office did not have previous culture results. He was started on finasteride 5mg daily and discharged with levoquin 750mg po daily for an additional 4 days to complete a 7 -day course of antibiotics given the complicated UTI. Minutes to complete discharge: 40 Discharge Summary Reason For Visit: URINARY RETENTION Current Active Problems UTI (urinary tract infection) (Acute) Urinary retention (Acute) Condition: Improved - Instructions Diet, Activity, Other Instructions: Take Levoquin 750mg 1 tablet per day for 4 more days to complete a 7-day course of treatment for your UTI. Drink plenty of water. Take Finestride 5mg 1 tablet daily and discuss with your urologist about continuing the medication. Follow-up with Dr. Escalona in his office in one week. Resume your home medications. If you develop pain with urination, notice a decrease in urination, blood in your urine, chest pain, or any new symptoms return to the hospital. Referrals: Morro Barrera MD [Staff Physician] - 1 Week Trish Yu [Primary Care Provider] - Disposition: HOME - Home Medications Comprehensive Discharge Medication List: Ambulatory Orders Tamsulosin HCl [Flomax -] 0.4 mg PO HS 05/26/12 Amlodipine Besylate 5 mg PO DAILY 10/03/15 Finasteride [Proscar -] 5 mg PO DAILY #10 tablet 12/01/16 Levofloxacin 750 mg PO DAILY #4 tablet 12/01/16 This patient is new to me today: No Emergency Visit: No Critical Care patient: No - Discharge Referral [facility] No
[2016-12-01 18:56] VITALS: BP 147/70; PULSE 68; TEMP 98.1
== END 2016-12-01 21:16 | disposition home or self-care (01) | DRG 690 ==
LOC: JER 10:01 → JERBED 14:32 → J7W 15:33
PROVIDERS: ADMIT Internal Medicine; ATTEND Internal Medicine
DX: N30.00 Acute cystitis without hematuria (principal); E87.1 Hypo-osmolality and hyponatremia; Z85.46 Personal history of malignant neoplasm of prostate; D72.829 Elevated white blood cell count, unspecified; N13.9 Obstructive and reflux uropathy, unspecified; R33.9 Retention of urine, unspecified
CPT/HCPCS: 36415; 71010-TC; 76775-TC; 80048; 80053; 81003; 81015; 82570; 83930; 83935; 84156; 85025; 87040; 87086; 93005; 93010; 99284-25

== ENCOUNTER 2016-12-22 11:40 | Day surgery (SDC) | payer OTHER, BC ==
[2016-12-18 16:32] VITALS: BMI 31.1
[2016-12-22] MEDS ORDERED: ACETAMINOPHEN 1000 MG/100 ML VIAL (NON FORMULARY) IVPB ONE (13:29)
--- NOTE | 2016-12-22 13:29 | HP ---
History & Physical Update - History History: No Change - Physical Physical: No Change - Assessment Assessment: No Change - Plan Plan: No Change
[2016-12-22] MEDS ORDERED: DEXTROSE 5%-0.45% SALINE 1,000 ML IV SCH (13:30)
[2016-12-22] MEDS ORDERED: ceFAZolin SODIUM 1 GM VIAL IVPB ONE (13:30)
[2016-12-22] MEDS ORDERED: DEXAMETHASONE SOD PHOSPHATE 4 MG/1 ML VIAL ONE ×2 (13:53)
--- NOTE | 2016-12-22 14:12 | OP ---
Operative Note - Note: Operative Date: 12/22/16 Pre-Operative Diagnosis: urinary retention, bladder neck stricture Operation: cystoscopy, bipolar TURP Findings: bladder neck obstruction. mid prostate narrowing as well. Post-Operative Diagnosis: Same as Pre-op Surgeon: Morro Barrera Anesthesia: General Specimens Removed: prostate tissue Estimated Blood Loss (mls): 25 Drains & Tubes with Location: 20 Fr jay cath Operative Report Dictated: Yes
[2016-12-22] MEDS ORDERED: ACETAMINOPHEN INJECTION 100 ML IVPB ONE (15:06)
[2016-12-22 15:17] VITALS: TEMP 97.8
[2016-12-22 16:07] VITALS: BP 127/68; PULSE 57
--- NOTE | 2016-12-22 18:55 | OP ---
DATE OF OPERATION: 12/22/2016 SURGEON: Morro Barrera MD PREOPERATIVE DIAGNOSES: Urinary retention, bladder neck stricture, prostate cancer. POSTOPERATIVE DIAGNOSES: Urinary retention, bladder neck stricture, prostate cancer. PROCEDURE: Cystoscopy, bipolar transurethral resection of prostate. ANESTHESIA: General. ESTIMATED BLOOD LOSS: 25 mL. SPECIMEN: Prostate chips. FINDINGS: Mid prostate and bladder neck narrowing. DRAINS: A 20-Croatian Sewell catheter. PREOPERATIVE INDICATIONS: The patient is a 71-year-old male who was diagnosed with prostate cancer in 2006, underwent external beam radiation therapy. He had a recurrence about 8 years later and underwent cryoablation of the prostate. He presented last week with urinary retention. Cystoscopy as an outpatient revealed a blockage at the mid prostate as well as a tight bladder neck. Sewell catheter was placed via cystoscopy at the time. He comes to the OR for resection of obstructive prostate tissue. Risks, benefits and alternatives discussed with the patient, including the risk of bleeding, infection, incontinence. OPERATION: The patient was brought to the OR, placed on the table in the supine position, given general anesthesia and IV antibiotics and placed in the modified lithotomy position. The groin was prepped and draped sterilely. Time-out was performed. Cystoscopy was performed. The distal urethra appeared to be normal. The urethral sphincter was seen. Just beyond that, there was dense prostate tissue obstructing the urethra and beyond that was a tight bladder neck with only a small opening into the bladder. The scope, after dilation, was able to be passed into the bladder. The bladder was examined. Multiple trabeculations were seen throughout. No tumors or stones were seen. Both UOs were visualized. Using the bipolar resecting loop, the bladder neck tissue was resected as well as the mid prostate tissue, which was causing a stricture as well. These pieces were sent for pathology. Hemostasis was maintained throughout. At the end of the case, the 26-Croatian resectoscope was easily passed into the bladder. A 20-Croatian Sewell catheter was placed for postoperative drainage. The patient was woken up. MORRO BARRERA M.D. [id number]
--- NOTE | 2016-12-23 12:47 | PATH ---
Surgical Pathology Report Patient Name: XIOMY TONY [facility]. Rec. #: [id number] /Age/Gender: 1945 (Age: 71) / M Account: [id number] Location: [facility] SURGICAL Taken: 12/22/2016 Received: 12/22/2016 Reported: 12/23/2016 Physicians: Morro Barrera M.D. Specimen(s) Received PROSTATE TISSUE Clinical History Bladder neck strictures, urinary retention Final Diagnosis PROSTATE TISSUE AND BLADDER NECK, TUR: FRAGMENTS OF HYPERPLASTIC UROTHELIAL MUCOSA WITH MARKED ACTIVE INFLAMMATION AND CALCIFICATIONS. FRAGMENTS OF HYPERPLASTIC FIBROMUSCULAR PROSTATE TISSUE WITH ACTIVE AND CHRONIC INFLAMMATION AND CALCIFICATIONS. Electronically Signed Evelio Fernandez M.D. Gross Description Received in formalin, labeled "prostate tissue" is a 1 g, 2.0 x 1.5 x 0.3 cm aggregate of multiple rivero, irregular portions of firm to rubbery tissue, consistent with prostate tissue. The specimen is submitted in toto in one cassette. 12/22/2016 [facility]12/22/2016
== END 2016-12-22 16:00 | disposition home or self-care (01) ==
LOC: JASU-SURG 11:40
PROVIDERS: ATTEND Urology
PROC: 0TBC8ZZ Excision of Bladder Neck, Via Natural or Artificial Opening Endoscopic (ICD-10-PCS; 2016-12-22)
PROC: 0VB08ZZ Excision of Prostate, Via Natural or Artificial Opening Endoscopic (ICD-10-PCS; principal; 2016-12-22 13:30)
DX: N40.0 Benign prostatic hyperplasia without lower urinary tract symptoms (principal); N32.0 Bladder-neck obstruction; R33.8 Other retention of urine; Z85.46 Personal history of malignant neoplasm of prostate
CPT/HCPCS: 88305-TC; 94760

== ENCOUNTER 2018-10-12 07:39 | Inpatient (IN) | payer OTHER, BC ==
--- NOTE | 2018-10-12 07:55 | HP ---
Satellite H - Chief Complaint Chief Complaint: right hip pain - Past Medical History Allergies/Adverse Reactions: Allergies Allergy/AdvReac Type Severity Reaction Status Date / Time No Known Drug Allergies Allergy Verified 10/01/18 11:46 Cardiovascular: Yes: HTN Renal/: Yes: Cancer, Other (Prostate) - Current Medications Current Medications: Home Medications Medication Instructions Recorded Tamsulosin HCl [Flomax -] 0.4 mg PO HS 05/26/12 Amlodipine Besylate 5 mg PO DAILY 10/03/15 Oxycodone HCl/Acetaminophen 1 tab PO Q4H PRN 10/01/18 [Percocet 5-325 mg Tablet] Satellite Physical Exam - Physical Examination General Appearance: Well Nourished, Well Developed, Alert & Oriented x3 ENT: Clear Lung: Normal air movement Heart: Regular rate & rhythm Extremities: Other (right hip- + ttp, decr rom ,nvi xrays show grade 4 hip djd) Neurological: Intact, Alert, Oriented Satellite Impression/Plan - Impression/Plan Impression: right hip djd Operative Procedure: right alexandria thr Date to be Performed: 10/12/18
[2018-10-12] MEDS ORDERED: CEFAZOLIN 2 GM/D5W 2 GM/50 ML ML IVPB ONE (07:58)
[2018-10-12] MEDS ORDERED: CELECOXIB 200 MG CAPSULE PO ONE (07:58)
[2018-10-12] MEDS ORDERED: GABAPENTIN 300 MG CAPSULE (FP) PO ONE (07:58)
[2018-10-12] MEDS ORDERED: oxyCODONE HCL 10 MG SUSTAINED ACTING TABLET PO ONE (07:58)
[2018-10-12] MEDS ORDERED: TRANEXAMIC ACID 1000 MG/10 ML VIAL IVPUSH ONE (07:58)
[2018-10-12 08:16] VITALS: BMI 28.1
[2018-10-12] MEDS ORDERED: ceFAZolin SODIUM 1 GM VIAL ONE ×2 (08:21→08:39)
[2018-10-12] MEDS ORDERED: DEXAMETHASONE SOD PHOSPHATE 4 MG/1 ML VIAL ONE (08:21)
[2018-10-12] MEDS ORDERED: SODIUM CHLORIDE 0.9% P/F 10 ML VIAL IJ ONE (08:21)
[2018-10-12] MEDS ORDERED: ONDANSETRON 4 MG/2 ML VIAL ONE (08:21)
[2018-10-12] MEDS ORDERED: BUPIVACAINE HCL/PF 0.5% (5MG/ML) 10 ML VIAL ONE (08:35)
[2018-10-12] MEDS ORDERED: VANCOMYCIN 1,000 MG VIAL (RESTRICTED TO ID ONLY) ONE (08:39)
[2018-10-12] MEDS ORDERED: MIDAZOLAM HCL 2 MG/2 ML SINGLE DOSE VIAL ONE ×2 (08:59→10:01)
[2018-10-12] MEDS ORDERED: DEXAMETHASONE SOD PHOSPHATE/PF 10 MG/ML SDV ONE (08:59)
[2018-10-12] MEDS ORDERED: DEXMEDETOMIDINE HCL 200 MCG/2 ML ML IVPB ONE (09:00)
[2018-10-12] MEDS ORDERED: PROPOFOL 20 ML ONE ×3 (10:08→15:15)
[2018-10-12] MEDS ORDERED: TRANEXAMIC ACID 1000 MG/10 ML VIAL ONE (10:16)
[2018-10-12] MEDS ORDERED: ePHEDrine SULFATE 50 MG/1 ML AMPULE ONE (10:27)
[2018-10-12] MEDS ORDERED: VANCOMYCIN 1,000 MG VIAL (RESTRICTED TO ID ONLY) IVPB ONE ×2 (10:40→11:00)
[2018-10-12] MEDS ORDERED: ONDANSETRON 4 MG/2 ML VIAL IVPUSH PRN ×2 (10:42→11:29)
[2018-10-12] MEDS ORDERED: ACETAMINOPHEN 325 MG TABLET (FP) PO SCH (10:45)
[2018-10-12] MEDS ORDERED: LACTATED RINGERS SOLUTION 1,000 ML IV SCH ×2 (10:45→11:30)
[2018-10-12] MEDS ORDERED: MAGNESIUM HYDROX 2400MG/30ML ORAL SUSPENSION 30 ML CUP PO PRN (11:29)
[2018-10-12] MEDS ORDERED: MAG HYDROX/AL HYDROX/SIMETH 30 ML UNIT-DOSE CUP PO PRN (11:29)
--- NOTE | 2018-10-12 11:31 | OP ---
Operative Note - Note: Operative Date: 10/12/18 (velma) Pre-Operative Diagnosis: right hip djd Operation: right alexandria thr Post-Operative Diagnosis: Same as Pre-op Surgeon: Saran Plasencia Program Counselor: Gordon Keenan Anesthesiologist/INSURANCE RISK SURVEYOR: Meek Nicholson Anesthesia: Spinal, Local Specimens Removed: femoral head Estimated Blood Loss (mls): 200 Operative Report Dictated: Yes
[2018-10-12] MEDS ORDERED: ACETAMINOPHEN 325 MG TABLET (FP) PO ONE (12:15)
[2018-10-12] MEDS ORDERED: ACETAMINOPHEN 325 MG TABLET (FP) ONE (12:19)
[2018-10-12] MEDS: ACETAMINOPHEN 325 MG TABLET (FP) PO SCH ×3 (12:34→23:29)
--- NOTE | 2018-10-12 13:05 | SPEC ---
DATE OF OPERATION: 10/12/2018 PREOPERATIVE DIAGNOSIS: Degenerative joint disease right hip. POSTOPERATIVE DIAGNOSIS: Degenerative joint disease right hip. PROCEDURE PERFORMED: Right total hip replacement with robotic-assisted navigation (MAKOplasty). SURGICAL ATTENDING: Saran Plasencia MD MASTER IN CHANCERY: LONNIE Roque ANESTHESIA: Regional and spinal. CLOSURE: A Press-Fit total knee replacement with a 56 Trident II acetabular cup, a number 7 Accolade II femoral stem, 36-mm metallic standard femoral head, and a polyethylene liner with 10-degree lip. Number 1 Vicryl for fascia, 0 and 2-0 subcutaneous, 3-0 V-Loc for skin, 4-0 undyed Vicryl for pin sites with skin glue. ESTIMATED BLOOD LOSS: Less than 100 mL. COMPLICATIONS: None. CONDITION: To the recovery room in stable condition. DESCRIPTION OF PROCEDURE: The patient was taken to the operating room on October 12, 2018. General and regional anesthesia was administered by the anesthesiologist. IV Kefzol and TXA were administered prophylactically prior to the case. The patient was placed in the lateral decubitus position will all prominences well-padded. The right hip area was prepped and draped in the usual sterile fashion. Using 3 small stab incisions over the iliac crest, 3 threaded pins were drilled in power fashion through the 2 tables of the crest. These pins were fastened and the navigation array for the Anant navigation system. Next, a 12 to 15-cm curved longitudinal incision over the posterolateral aspect of the greater trochanter was incised. Hemostasis was achieved with Bovie cautery. Sharp dissection was carried down to level of the fascia. The fascia was opened the entire length of the incision, spreading the fibers of the gluteus zhang in the direction of origin. A Charnley retractor was placed in this layer. Care was taken not to impale the sciatic nerve. The short external rotators were detached off the insertion of the greater trochanter and peeled off the capsule. A posterior capsulotomy was then performed. A check point was malleted into the greater trochanter and a point on the inferior pole of the patella was obtained as well. These 2 points were used to assess the preoperative offset and limb lengths of the hip. The hip was then dislocated. The femoral neck was then osteotomized down to the appropriate level as directed by the navigation device. Anterior and posterior retractors were placed, exposing the acetabulum. A circumferential labral excision was performed. A check point was malleted into the acetabulum as well. Multiple sites inside the acetabulum and around the rim were utilized to register the acetabulum with the navigation device. An excellent registration of less than 0.5 mm was obtained. The hip was then reamed with the appropriate reamer down to the appropriate depth, with the appropriate orientation and version as assessed on our preoperative plan for this patient. The reamer was removed and the acetabulum was inspected to have good bleeding surfaces throughout. The real acetabular cup was then malleted down into place, with the holes in the appropriate position, until an excellent fixation was obtained. No screws were necessary. The navigation device ensured appropriate orientation and version, with the depth as predetermined. The appropriate liner was then clipped into place. Attention was directed to the femur. The proximal femur was prepared by use a box chisel, a canal finder and serial broaches until the broach achieved excellent rigidity in the proximal femur with the appropriate version being applied. A calcar planer was used to smooth off the calcar flush with the trial components. A trial reduction with the appropriate head was done, and the hip was reduced. The hip was taken through a range of motion from full extension with external rotation to marked flexion, and was stable at 90 degrees of flexion. It was stable to marked abduction and internal rotation, with a positive hang test and negative telescoping. Limb lengths were ascertained visually as well as with the navigation device to be within the targeted range for this patient. The trial component was removed. The real component was then malleted into place. The head was cold welded to the trunnion, and the hip was reduced. Range of motion, stability and limb lengths were as described in the trial component. Then the hip was pulse antibiotic irrigated. Vancomycin powder was placed in the hip joint. The capsule was closed. The fascia was then closed as well using number 1 Vicryl interrupted suture, 0 and 2-0 subcutaneous, and 3-0 V-Loc for the skin. 4-0 undyed Vicryl was used to close the pin sites after the pins were removed. All check points were also removed. Sterile Aquacel dressing was applied. The patient was awakened from anesthesia and transferred into the supine position. Bilateral SCDs and an abduction pillow were placed. X-rays revealed excellent position of the components. The patient was transferred to the recovery room in stable condition, with no complications. Estimated blood loss was less than 100 mL. Chi [id number]
[2018-10-12] MEDS ORDERED: SUCCINYLCHOLINE CHLORIDE 200 MG/10 ML VIAL ONE (13:06)
[2018-10-12] MEDS ORDERED: KETOROLAC TROMETHAMINE 30 MG/1 ML VIAL ONE (15:24)
[2018-10-12] MEDS ORDERED: GLYCOPYRROLATE 0.2 MG/1 ML VIAL ONE (15:37)
[2018-10-12] MEDS ORDERED: NEOSTIGMINE METHYLSULFATE 0.5 MG/ML - 10 ML MDV ONE (15:37)
[2018-10-12] MEDS: CEFAZOLIN 2 GM/D5W 2 GM/50 ML ML IVPB SCH (18:13)
[2018-10-12] MEDS: TAMSULOSIN HCL 0.4 MG CAP PO SCH (21:07)
[2018-10-12] MEDS: SENNOSIDES/DOCUSATE COMBO (SENNA PLUS) TABLET (UD) PO SCH (21:08)
[2018-10-13] MEDS: CEFAZOLIN 2 GM/D5W 2 GM/50 ML ML IVPB SCH (01:14)
[2018-10-13] MEDS: ACETAMINOPHEN 325 MG TABLET (FP) PO SCH ×3 (06:04→17:56)
[2018-10-13] MEDS: oxyCODONE HCL 5 MG TABLET PO PRN ×5 (06:05→20:45)
[2018-10-13 07:55] LABS: HEMATOCRIT 37.9 % (35.4-49); HEMOGLOBIN 12.7 GM/dl (11.7-16.9); MCH 31.5 pg (25.7-33.7); MCHC 33.5 g/dl (32.0-35.9); MEAN PLT VOLUME 9.1 fl (7.5-11.1); PLATELET COUNT 197 K/MM3 (134-434); RBC 4.03 M/mm3 (4.00-5.60); RDW 12.9 % (11.9-15.9); WHITE BLOOD COUNT 11.4 K/mm3 (4.0-10.8)
[2018-10-13] MEDS: MULTIVITAMINS (DAILY MVI) TABLET (FP) PO SCH (09:51)
[2018-10-13] MEDS: SENNOSIDES/DOCUSATE COMBO (SENNA PLUS) TABLET (UD) PO SCH ×2 (09:52→21:15)
[2018-10-13] MEDS: amLODIPine BESYLATE 5 MG TABLET (FP) PO SCH (09:52)
[2018-10-13] MEDS: PANTOPRAZOLE 40 MG TABLET (FP) PO SCH (09:52)
[2018-10-13] MEDS: ASPIRIN 325 MG TABLET PO SCH (09:52)
--- NOTE | 2018-10-13 11:23 | PN ---
Progress Note (short form) - Note Progress Note: Ortho Pt seen and examined s/p right alexandria thr pod #1 Selected Entries 10/13/18 06:27 Temperature 98.1 F Pulse Rate 59 L Respiratory 19 Rate Blood Pressure 134/61 Laboratory Tests 10/13/18 07:15 WBC 11.4 H Hgb 12.7 Hct 37.9 Plt Count 197 dressing c/d/i, calf soft, nt nvi a/p PT hip precautions dvt ppx pain control d/c home tomorrow if stable
--- NOTE | 2018-10-13 11:28 | PN ---
Progress Note (short form) - Note Progress Note: 73M POD1 s/p RTHR under spinal anesthetic with peripheral nerve blocks for post operative pain relief. Pt states that pain is well controlled and reports no anesthetic complications. AVSS. Motor and sensory exam intact in bilateral lower extremities. Continue current regimen.
[2018-10-13] MEDS: TAMSULOSIN HCL 0.4 MG CAP PO SCH (21:15)
[2018-10-14] MEDS: ACETAMINOPHEN 325 MG TABLET (FP) PO SCH ×5 (00:28→23:13)
[2018-10-14] MEDS: oxyCODONE HCL 5 MG TABLET PO PRN ×4 (03:19→13:23)
[2018-10-14 08:16] LABS: HEMATOCRIT 36.9 % (35.4-49); HEMOGLOBIN 12.3 GM/dl (11.7-16.9); MCH 31.5 pg (25.7-33.7); MCHC 33.3 g/dl (32.0-35.9); MEAN CELL VOLUME 94.4 fl (80-96); MEAN PLT VOLUME 9.3 fl (7.5-11.1); PLATELET COUNT 174 K/MM3 (134-434); RBC 3.91 M/mm3 (4.00-5.60); RDW 13.2 % (11.9-15.9)
[2018-10-14] MEDS: ASPIRIN 325 MG TABLET PO SCH (08:30)
--- NOTE | 2018-10-14 08:38 | PN ---
Progress Note (short form) - Note Progress Note: Ortho Pt seen and examined s/p right alexandria thr pod #2 Selected Entries 10/14/18 06:00 Temperature 98.2 F Pulse Rate 73 Respiratory 18 Rate Blood Pressure 125/56 L Laboratory Tests 10/14/18 07:29 WBC Pending Hgb Pending Hct Pending Plt Count Pending dressing c/d/i, calf soft, nt nvi a/p PT hip precautions dvt ppx pain control d/c planning for rehab
[2018-10-14] MEDS: amLODIPine BESYLATE 5 MG TABLET (FP) PO SCH (09:37)
[2018-10-14] MEDS: MULTIVITAMINS (DAILY MVI) TABLET (FP) PO SCH (09:37)
[2018-10-14] MEDS: PANTOPRAZOLE 40 MG TABLET (FP) PO SCH (09:37)
[2018-10-14] MEDS: SENNOSIDES/DOCUSATE COMBO (SENNA PLUS) TABLET (UD) PO SCH ×2 (09:37→21:10)
--- NOTE | 2018-10-14 16:57 | PATH ---
Surgical Pathology Report Patient Name: XIOMY TONY Med. Rec. #: [id number] /Age/Gender: 1945 (Age: 73) / M Account: [id number] Location: [facility] Taken: 10/12/2018 Received: 10/12/2018 Reported: 10/14/2018 Physicians: Saran Plasencia M.D. Specimen(s) Received RIGHT FEMORAL HEAD Clinical History Osteoarthritis of right hip Final Diagnosis BONE, FEMORAL HEAD, RIGHT, TOTAL HIP REPLACEMENT MAKOPASTY: BONE WITH DEGENERATIVE JOINT DISEASE. Electronically Signed Stephany Randhawa M.D. Gross Description Received in formalin, labeled "right femoral head," is a 4.8 x 4.8 x 4.1 cm. femoral head with a 0.9 cm in length portion of femoral neck attached. The margin of resection is smooth. There is a 2.2 cm greatest dimension area of eburnation identified. The remaining articular surface is rivero-yellow and diffusely granular and nodular. The underlying trabecular bone is yellow and hard. A site safety representative section is submitted in one cassette, following decalcification. 10/13/201810/13/2018
[2018-10-14] MEDS: TAMSULOSIN HCL 0.4 MG CAP PO SCH (21:10)
[2018-10-15] MEDS: ACETAMINOPHEN 325 MG TABLET (FP) PO SCH (06:13)
[2018-10-15 06:44] VITALS: BP 126/55; PULSE 69; TEMP 97.5
--- NOTE | 2018-10-15 09:32 | PN ---
Progress Note (short form) - Note Progress Note: Ortho Pt seen and examined s/p right [place] thr pod #3 Selected Entries 10/15/18 06:00 Temperature 97.5 F L Pulse Rate 69 Respiratory 18 Rate Blood Pressure 126/55 L dressing c/d/i, calf soft, nt nvi a/p PT hip precautions dvt ppx pain control d/c to rehab today
--- NOTE | 2018-10-15 09:33 | DS ---
Physical Examination Vital Signs: Vital Signs Temperature 97.5 F L 10/15/18 06:00 Pulse Rate 69 10/15/18 06:00 Respiratory Rate 18 10/15/18 06:00 Blood Pressure 126/55 L 10/15/18 06:00 O2 Sat by Pulse Oximetry (%) 96 10/15/18 06:00 Labs: CBC, BMP 10/14/18 07:29 Discharge Summary Reason For Visit: OSTEOARTHRITIS Procedures: Principal: right thr Hospital Course: admitted for elective right [place] thr, uneventful post-op, stable for d/c Condition: Good - Instructions Diet, Activity, Other Instructions: Post-op Instructions-Total Hip Replacement Call the office for a follow-up appointment in 1 week - [phone] Aspirin 325mg daily for 6 weeks. Pain medication was sent into your pharmacy. Apply Graduated Compression Stockings (TEDs) to both lower extremities- remove daily for hygiene ONLY Apply Sequential Compression Device (SCDs) to both Lower extremities remove for PT and hygiene ONLY Apply cold packs to affected area for 15 minutes every 2 hours. Physical Therapist will come to your home for the first 5 days. You will be set up with outpatient PT at your first post-operative visit. Patient may ambulate as tolerated-encourage self care (at least every 2-3 hours while awake) with walker or cane Maintain Aquacel (waterproof) dressing to operative wound (will be removed by surgeon at first office visit) Shower with Aquacel dressing in place-if Aquacel integrity compromised, remove and apply dry sterile dressing and notify Orthopedist. DO NOT SHOWER unless Orthopedists approves without Aquacel dressing CONTACT THE OFFICE FOR ANY CHANGE IN YOUR CONDITION (for example-fever greater than 102 degrees, excessive bleeding from operative site, purulent drainage, severe swelling or pain) GO TO THE EMERGENCY ROOM IF THERE IS A MEDICAL EMERGENCY Hip Precautions: * Keep a rolled towel under affected heel while in bed or chair (to keep knee in extension) * Dependent upon approach: * Posterior - do not cross legs; do not sit on low chairs or toilets. * If you have any questions, please do not hesitate to call the office - [phone]. Referrals: Saran Plasencia MD [Staff Physician] - Disposition: [facility]/HOME HEALTH CARE - Home Medications Comprehensive Discharge Medication List: Ambulatory Orders Tamsulosin HCl [Flomax -] 0.4 mg PO HS 05/26/12 Amlodipine Besylate 5 mg PO DAILY 10/03/15 Aspirin [ASA -] 325 mg PO DAILY@0800 tablet 10/12/18 Oxycodone HCl/Acetaminophen [Percocet 5-325 mg Tablet] 1 - 2 tab PO Q6H PRN #50 tablet MDD 6 10/12/18
[2018-10-15] MEDS: ASPIRIN 325 MG TABLET PO SCH (09:47)
[2018-10-15] MEDS: oxyCODONE HCL 5 MG TABLET PO PRN (09:47)
[2018-10-15] MEDS: amLODIPine BESYLATE 5 MG TABLET (FP) PO SCH (09:48)
[2018-10-15] MEDS: SENNOSIDES/DOCUSATE COMBO (SENNA PLUS) TABLET (UD) PO SCH (09:49)
[2018-10-15] MEDS: MULTIVITAMINS (DAILY MVI) TABLET (FP) PO SCH (09:49)
[2018-10-15] MEDS: PANTOPRAZOLE 40 MG TABLET (FP) PO SCH (09:49)
== END 2018-10-15 11:54 | disposition home health service (06) | DRG 470 ==
LOC: FM/S 07:39
PROVIDERS: ADMIT Orthopaedic Surgery; ATTEND Orthopaedic Surgery
PROC: 8E0W0CZ Robotic Assisted Procedure of Trunk Region, Open Approach (ICD-10-PCS; 2018-10-12)
PROC: 0SR904A Replacement of Right Hip Joint with Ceramic on Polyethylene Synthetic Substitute, Uncemented, Open Approach (ICD-10-PCS; principal; 2018-10-12 09:30)
DX: M16.11 Unilateral primary osteoarthritis, right hip (principal); I10 Essential (primary) hypertension; Z85.46 Personal history of malignant neoplasm of prostate
CPT/HCPCS: 36415; 73502-TC-RT; 85027; 88305-TC; 88311-TC; 94760; 97116-GP; 97162-GP

== ENCOUNTER 2022-09-25 17:43 | Inpatient (IN) | payer OTHER, BC ==
[2022-09-25] MEDS ORDERED: morphine CARPU-JECT 2 MG/1 ML DISP.SYRIN IVPUSH ONE (19:49)
[2022-09-25 20:31] LABS: BASO % 0.7 % (0-2.0); EOS % 0.1 % (0-4.5); HEMATOCRIT 43.9 % (35.4-49); HEMOGLOBIN 14.7 GM/dL (11.7-16.9); LYMPH % 5.1 % (8-40); MCH 30.2 pg (25.7-33.7); MCHC 33.4 g/dl (32.0-35.9); MEAN CELL VOLUME 90.6 fl (80-96); MEAN PLT VOLUME 9.5 fl (7.5-11.1); MONO % 10.7 % (3.8-10.2); NEUT % 83.4 % (42.8-82.8); PLATELET COUNT 188 10^3/uL (134-434); RBC 4.85 M/mm3 (4.00-5.60); RDW 14.1 % (11.9-15.9); WHITE BLOOD COUNT 12.8 K/mm3 (4.0-10.0)
[2022-09-25 20:45] LABS: CALCIUM 8.9 mg/dL (8.5-10.1)
[2022-09-25 20:46] LABS: ALBUMIN 3.6 g/dl (3.4-5.0); BLOOD UREA NITROGEN 15.7 mg/dL (7-18)
[2022-09-25 20:50] LABS: TOT PROT 6.8 g/dl (6.4-8.2)
[2022-09-25 20:51] LABS: BILIRUBIN,TOTAL 1.4 mg/dL (0.2-1)
[2022-09-25] MEDS ORDERED: LIDOCAINE HCL 2% JELLY 11 ML TP ONE (21:22)
[2022-09-25] MEDS ORDERED: PIPERACILLIN/TAZOB 3.375 GM 3.375 GM in DEXTROSE 5%-WATER - 50 ML IVPB ONE (22:04)
[2022-09-25] MEDS ORDERED: ONDANSETRON 4 MG/2 ML VIAL IVPUSH ONE (22:04)
[2022-09-25] MEDS ORDERED: SODIUM CHLORIDE 500 ML IV STA (22:04)
[2022-09-25] MEDS ORDERED: ONDANSETRON 4 MG/2 ML VIAL ONE (22:05)
[2022-09-25] MEDS ORDERED: PIPERACILLIN/TAZOB 3.375 GM 3.375 GM/50 ML BAG IVPB ONE (22:06)
[2022-09-25] MEDS ORDERED: ACETAMINOPHEN 1000 MG/100 ML BAG IVPB ONE (22:06)
[2022-09-25] MEDS ORDERED: ACETAMINOPHEN INJECTION 100 ML IVPB ONE (22:30)
[2022-09-25] MEDS ORDERED: POTASSIUM CHLORIDE TABS 20 MEQ TABLET.ER (FP) PO ONE (23:02)
[2022-09-25 23:05] LABS: INR 1.29 (0.83-1.09); PROTHROMBIN TIME (PATIENT) 14.9 SEC (9.7-13.0)
[2022-09-25 23:07] LABS: ACTIVATED PTT 25.9 SECONDS (25.2-36.5)
[2022-09-26 01:05] LABS: BILIRUBIN,DIRECT 0.2 mg/dL (0.0-0.2)
[2022-09-26 01:23] LABS: VENOUS BASE EXCESS 2.6 mmol/L (-2-2); VENOUS O2 SATURATION 57.8 % (70-80); VENOUS PCO2 46.9 mmHg (38-52); VENOUS PH 7.397 (7.310-7.410)
[2022-09-26 01:41] LABS: ARTERIAL BLD GAS O2 SATURATION 71.3 % (95-98); ARTERIAL BLOOD GAS BASE EXCESS 2.9 mmol/L (-2-2); ARTERIAL BLOOD GAS pH 7.421 (7.350-7.450)
[2022-09-26 01:45] LABS: INR 1.41 (0.83-1.09); PROTHROMBIN TIME (PATIENT) 16.3 SEC (9.7-13.0)
[2022-09-26 01:47] LABS: ACTIVATED PTT 25.1 SECONDS (25.2-36.5)
[2022-09-26 01:51] LABS: N-TERMINAL BNP 17172.3 pg/ml (5-450)
[2022-09-26 01:54] LABS: ARTERIAL BLOOD GAS PO2 36.9 mmHg (80-100)
[2022-09-26] MEDS ORDERED: POTASSIUM CHLORIDE TABS 20 MEQ TABLET.ER (FP) PO ONE ×4 (02:19→09:54)
[2022-09-26 02:27] LABS: LACTIC ACID 5.4 mmol/L (0.4-2.0)
[2022-09-26] MEDS ORDERED: LACTATED RINGERS SOLUTION 1,000 ML/1,000 ML INFUS.BAG IV SCH (03:30)
[2022-09-26] MEDS ORDERED: KCL 10 MEQ IVPB 10 MEQ/100 ML INFUS.BAG IVPB ONE ×2 (03:47→05:22)
[2022-09-26] MEDS ORDERED: PIPERACILLIN/TAZOB 4.5 GM 4.5 GM/100 ML BAG IVPB ONE (03:47)
[2022-09-26] MEDS: KCL 10 MEQ IVPB 10 MEQ/100 ML INFUS.BAG IVPB SCH ×6 (03:58→13:00)
[2022-09-26 04:09] LABS: MAGNESIUM 1.2 mg/dL (1.8-2.4)
[2022-09-26 04:13] LABS: PHOSPHOROUS 1.6 mg/dL (2.5-4.9)
[2022-09-26] MEDS ORDERED: ACETAMINOPHEN 1000 MG/100 ML BAG IVPB PRN ×2 (04:30)
[2022-09-26] MEDS ORDERED: ASPIRIN 81 MG CHEWABLE TABLETS PO ONE (04:45)
[2022-09-26] MEDS ORDERED: MAGNESIUM SULFATE IN WATER 2 GM/50 ML IVPB IVPB ONE ×3 (04:45→14:01)
[2022-09-26] MEDS ORDERED: HEPARIN NA (PORCINE) 5,000 UNITS/ML 1ML VIAL IVPUSH PRN ×3 (04:54→17:55)
[2022-09-26] MEDS ORDERED: PIPERACILLIN/TAZOB 4.5 GM 4.5 GM in DEXTROSE 5%-WATER 100 ML IVPB SCH (05:00)
[2022-09-26] MEDS ORDERED: VANCOMYCIN/WATER 2 GM/400 ML PREMIX BAG IVPB SCH (05:00)
[2022-09-26] MEDS ORDERED: HEPARIN INFUSION - 25,000 UNITS/500 ML INFUS.BAG IVPB SCH (05:00)
[2022-09-26] MEDS ORDERED: POTASSIUM PHOSPHATE 30 MM in SODIUM CHLORIDE 500 ML IVPB ONE (06:00)
[2022-09-26] MEDS ORDERED: DEXMEDETOMIDINE HCL 200 MCG/2 ML IVPB ONE (06:22)
[2022-09-26] MEDS ORDERED: ACETAMINOPHEN INJECTION 100 ML IVPB ONE (06:22)
[2022-09-26] MEDS ORDERED: FENTANYL CITRATE/PF 50 MCG/ML VIAL ONE (06:26)
[2022-09-26] MEDS ORDERED: KETAMINE HCL 500 MG/10 ML VIAL ONE (06:35)
[2022-09-26] MEDS ORDERED: PROPOFOL 20 ML ONE (06:53)
[2022-09-26] MEDS ORDERED: SUCCINYLCHOLINE CHLORIDE 200 MG/10 ML SYRINGE ONE (06:53)
[2022-09-26 07:25] LABS: HEMATOCRIT 40.8 % (35.4-49); HEMOGLOBIN 13.3 GM/dL (11.7-16.9); MCH 29.7 pg (25.7-33.7); MCHC 32.5 g/dl (32.0-35.9); MEAN CELL VOLUME 91.4 fl (80-96); MEAN PLT VOLUME 9.9 fl (7.5-11.1); PLATELET COUNT 105 10^3/uL (134-434); RBC 4.47 M/mm3 (4.00-5.60); RDW 14.5 % (11.9-15.9); WHITE BLOOD COUNT 17.6 K/mm3 (4.0-10.0)
[2022-09-26 07:51] LABS: CHLORIDE 111 mmol/L (98-107); SODIUM 150 mmol/L (136-145)
[2022-09-26 07:54] LABS: BLOOD UREA NITROGEN 23.4 mg/dL (7-18); CALCIUM 8.2 mg/dL (8.5-10.1); CO2 27 mmol/L (21-32); GLUCOSE,RANDOM 104 mg/dL (74-106); MAGNESIUM 1.4 mg/dL (1.8-2.4)
[2022-09-26 07:57] LABS: CREATININE 1.6 mg/dL (0.55-1.3); SGOT/AST 49 U/L (15-37); SGPT/ALT 29 U/L (13-61)
[2022-09-26 07:58] LABS: CHOLESTEROL 83 mg/dL (50-200); LDL CHOLESTEROL (ONLY SJRH) 31 mg/dL (5-100); TOT PROT 5.5 g/dl (6.4-8.2)
[2022-09-26 07:59] LABS: BILIRUBIN,TOTAL 1.2 mg/dL (0.2-1)
[2022-09-26 08:00] LABS: ALK PHOS 63 U/L (45-117); HDL CHOLESTEROL 49 mg/dL (40-60)
[2022-09-26] MEDS ORDERED: DEXTROSE 5%-WATER - 1,000 ML IV SCH (08:15)
[2022-09-26 08:24] LABS: ALBUMIN 2.9 g/dl (3.4-5.0); ANION GAP 11 MMOL/L (8-16); TRIGLYCERIDES 55 mg/dL (0-150)
[2022-09-26 08:54] LABS: LACTIC ACID 2.6 mmol/L (0.4-2.0)
[2022-09-26] MEDS: NYSTATIN POWDER 100,000 UNITS/GM - 15 GM TOPICAL POWDER TP SCH (09:22)
[2022-09-26] MEDS: MINERAL OIL/PET HY-PHL TOPICAL OINTMENT 454 GM JAR TP SCH (09:22)
[2022-09-26] MEDS: ZINC OXIDE 20% TOPICAL OINTMENT 30 GM TUBE TP SCH (09:23)
[2022-09-26 09:24] LABS: ANISOCYTOSIS 3+; MACROCYTOSIS 0
[2022-09-26] MEDS ORDERED: DOXYCYCLINE HYCLATE 100 MG VIAL ONE (09:25)
[2022-09-26] MEDS ORDERED: CEFTRIAXONE 1 GM/50 ML BAG ONE (09:25)
[2022-09-26] MEDS ORDERED: ZINC OXIDE 20% TOPICAL OINTMENT 30 GM TUBE TP SCH (10:00)
[2022-09-26] MEDS ORDERED: ENOXAPARIN NA (PORCINE) 40 MG/0.4 ML DISP.SYRIN SQ SCH (10:00)
[2022-09-26] MEDS ORDERED: DOXYCYCLINE INJECTION 100 MG in DEXTROSE 5%-WATER 100 ML IVPB SCH (10:00)
[2022-09-26] MEDS ORDERED: CEFTRIAXONE 1 GM in DEXTROSE 5%-WATER - 50 ML IVPB SCH (10:00)
[2022-09-26] MEDS ORDERED: NYSTATIN POWDER 100,000 UNITS/GM - 15 GM TOPICAL POWDER TP SCH (10:00)
[2022-09-26 10:12] LABS: ARTERIAL BLD GAS O2 SATURATION 93.9 % (95-98); ARTERIAL BLOOD GAS PO2 68.7 mmHg (80-100); ARTERIAL BLOOD GAS pH 7.413 (7.350-7.450)
[2022-09-26] MEDS ORDERED: POTASSIUM CHLORIDE ORAL LIQUID 20 MEQ/15 ML ONE (10:24)
[2022-09-26] MEDS ORDERED: KCL 10 MEQ IVPB 30 MEQ/300 ML INFUS.BAG IVPB ONE (10:24)
[2022-09-26 10:25] LABS: ALLENS TEST POSITIVE
[2022-09-26] MEDS ORDERED: MAGNESIUM SULF 50% (8.12 MEQ/2 ML-1 GM VIAL) IVPB ONE (13:47)
[2022-09-26] MEDS ORDERED: CARVEDILOL 3.125 MG TABLET (FP) ONE (14:01)
[2022-09-26] MEDS ORDERED: NAPH,MB-DB/K PH,MBDB POWDER PACKET ONE (14:01)
[2022-09-26] MEDS ORDERED: MAGNESIUM 1GM/D5W - 1 GM/100 ML IVPB IVPB ONE (14:03)
[2022-09-26] MEDS: NAPH,MB-DB/K PH,MBDB POWDER PACKET PO SCH (15:06)
[2022-09-26] MEDS: CARVEDILOL 3.125 MG TABLET (FP) PO SCH ×2 (15:06→15:31)
[2022-09-26] MEDS ORDERED: LACTATED RINGERS SOLUTION 1000 ML INFUS.BAG IV ONE (15:40)
[2022-09-26 16:30] LABS: CALCIUM 8.3 mg/dL (8.5-10.1)
[2022-09-26 16:31] LABS: ALBUMIN 2.9 g/dl (3.4-5.0); BLOOD UREA NITROGEN 28.1 mg/dL (7-18); MAGNESIUM 1.8 mg/dL (1.8-2.4)
[2022-09-26 16:34] LABS: PHOSPHOROUS 4.4 mg/dL (2.5-4.9)
[2022-09-26 16:36] LABS: TOT PROT 5.6 g/dl (6.4-8.2)
[2022-09-26] MEDS ORDERED: HEPARIN NA (PORCINE) 5,000 UNITS/ML 1ML VIAL IVPUSH ONE (16:58)
[2022-09-26] MEDS: HEPARIN - 25,000 UNIT in SODIUM CHLORIDE 495 ML IV SCH (17:26)
[2022-09-26] MEDS: NOREPINEPHRINE 0.9 % NACL 8 MG/250 ML BAG IVPB SCH (17:27)
[2022-09-26] MEDS: PIPERACILLIN/TAZOB 2.25 GM 2.25 GM in DEXTROSE 5%-WATER - 50 ML IVPB SCH (17:28)
[2022-09-26] MEDS ORDERED: HEPARIN NA (PORCINE) 5,000 UNITS/ML 1ML VIAL ONE (17:30)
[2022-09-26 17:34] LABS: URINE APPEARANCE CLOUDY; URINE BILIRUBIN NEGATIVE (NEGATIVE); URINE COLOR YELLOW; URINE GLUCOSE (UA) NEGATIVE (NEGATIVE); URINE KETONE NEGATIVE (NEGATIVE)
[2022-09-26 17:35] LABS: URINE LEUK ESTERASE 3+ (NEGATIVE); URINE NITRITE NEGATIVE (NEGATIVE); URINE PROTEIN 30 (NEGATIVE)
[2022-09-26 17:36] LABS: EPI CELLS 50 /uL (0-25.1); HYALINE CASTS 4 /uL (0-3.1); URINE BACTERIA 81 /uL (0-1359); URINE RBC 681 /uL (0-23.9); URINE WBC 454 /uL (0-25.8)
[2022-09-26] MEDS ORDERED: PIPERACILLIN/TAZOB 2.25 GM 2.25 GM/50 ML BAG IVPB ONE (17:43)
[2022-09-27] MEDS: MINERAL OIL/PET HY-PHL TOPICAL OINTMENT 454 GM JAR TP SCH ×3 (00:27→21:59)
[2022-09-27] MEDS: MUPIROCIN 2% TOPICAL OINTMENT FOR DECOLONIZATION NS SCH ×3 (00:27→21:59)
[2022-09-27] MEDS: NYSTATIN POWDER 100,000 UNITS/GM - 15 GM TOPICAL POWDER TP SCH ×3 (00:28→21:59)
[2022-09-27] MEDS: ZINC OXIDE 20% TOPICAL OINTMENT 30 GM TUBE TP SCH ×3 (00:28→21:59)
[2022-09-27] MEDS: CHLORHEXIDINE GLUCONATE 4% CLEANSER FOR DECOLONIZATION TP SCH ×2 (00:28→21:59)
[2022-09-27] MEDS: PIPERACILLIN/TAZOB 2.25 GM 2.25 GM in DEXTROSE 5%-WATER - 50 ML IVPB SCH ×2 (02:15→10:31)
[2022-09-27] MEDS ORDERED: PIPERACILLIN/TAZOB 4.5 GM 4.5 GM in DEXTROSE 5%-WATER 100 ML IVPB SCH (03:00)
[2022-09-27] MEDS: NOREPINEPHRINE 0.9 % NACL 8 MG/250 ML BAG IVPB SCH (05:00)
[2022-09-27] MEDS ORDERED: VANCOMYCIN/WATER 2 GM/400 ML PREMIX BAG IVPB SCH (05:00)
[2022-09-27 07:46] LABS: HEMATOCRIT 41.3 % (35.4-49); HEMOGLOBIN 13.3 GM/dL (11.7-16.9); MCH 29.7 pg (25.7-33.7); MCHC 32.3 g/dl (32.0-35.9); MEAN PLT VOLUME 10.7 fl (7.5-11.1); PLATELET COUNT 100 10^3/uL (134-434); RBC 4.49 M/mm3 (4.00-5.60); RDW 15.2 % (11.9-15.9); WHITE BLOOD COUNT 27.6 K/mm3 (4.0-10.0)
[2022-09-27 08:46] LABS: ALBUMIN 2.8 g/dl (3.4-5.0); BILIRUBIN,TOTAL 0.9 mg/dL (0.2-1); BLOOD UREA NITROGEN 40.2 mg/dL (7-18); CALCIUM 7.7 mg/dL (8.5-10.1); CREATININE 2.2 mg/dL (0.55-1.3); PHOSPHOROUS 5.4 mg/dL (2.5-4.9); TOT PROT 5.6 g/dl (6.4-8.2)
[2022-09-27] MEDS ORDERED: LACTATED RINGERS SOLUTION 1,000 ML/1,000 ML INFUS.BAG IV STA (09:25)
[2022-09-27] MEDS ORDERED: VASOPRESSIN 40 UNITS/100 ML BAG IV SCH (09:45)
[2022-09-27] MEDS: PANTOPRAZOLE SODIUM 40 MG VIAL IVPUSH SCH (10:31)
[2022-09-27] MEDS: NAPH,MB-DB/K PH,MBDB POWDER PACKET PO SCH (10:31)
[2022-09-27] MEDS: HEPARIN NA (PORCINE) 5,000 UNITS/ML 1ML VIAL IVPUSH PRN ×2 (14:41→21:57)
[2022-09-27] MEDS: DEXTROSE 5%-WATER - 1,000 ML IV SCH (15:36)
[2022-09-27] MEDS: MEROPENEM 1 GM in DEXTROSE 5%-WATER 100 ML IVPB SCH ×2 (17:20→17:38)
[2022-09-27] MEDS ORDERED: ACETAMINOPHEN 1000 MG/100 ML BAG IVPB PRN (23:25)
[2022-09-28] MEDS: MEROPENEM 1 GM in DEXTROSE 5%-WATER 100 ML IVPB SCH ×3 (02:24→17:02)
[2022-09-28] MEDS: HEPARIN NA (PORCINE) 5,000 UNITS/ML 1ML VIAL IVPUSH PRN ×2 (04:17→17:48)
[2022-09-28] MEDS: DEXTROSE 5%-WATER - 1,000 ML IV SCH (04:29)
[2022-09-28 08:09] LABS: HEMATOCRIT 37.9 % (35.4-49); HEMOGLOBIN 12.2 GM/dL (11.7-16.9); MCH 29.7 pg (25.7-33.7); MCHC 32.3 g/dl (32.0-35.9); MEAN CELL VOLUME 91.8 fl (80-96); PLATELET COUNT 75 10^3/uL (134-434); RBC 4.13 M/mm3 (4.00-5.60); RDW 15.4 % (11.9-15.9); WHITE BLOOD COUNT 20.2 K/mm3 (4.0-10.0)
[2022-09-28 08:10] LABS: BLOOD UREA NITROGEN 42.3 mg/dL (7-18); CALCIUM 7.5 mg/dL (8.5-10.1)
[2022-09-28 08:11] LABS: ALBUMIN 2.5 g/dl (3.4-5.0); MAGNESIUM 2.1 mg/dL (1.8-2.4)
[2022-09-28 08:14] LABS: CREATININE 1.2 mg/dL (0.55-1.3); PHOSPHOROUS 2.4 mg/dL (2.5-4.9)
[2022-09-28 08:15] LABS: BILIRUBIN,TOTAL 0.6 mg/dL (0.2-1); TOT PROT 5.1 g/dl (6.4-8.2)
[2022-09-28] MEDS: MUPIROCIN 2% TOPICAL OINTMENT FOR DECOLONIZATION NS SCH (09:35)
[2022-09-28] MEDS: PANTOPRAZOLE SODIUM 40 MG VIAL IVPUSH SCH (09:35)
[2022-09-28] MEDS ORDERED: ZINC OXIDE 20% TOPICAL OINTMENT 30 GM TUBE TP SCH (10:00)
[2022-09-28] MEDS ORDERED: NYSTATIN POWDER 100,000 UNITS/GM - 15 GM TOPICAL POWDER TP SCH (10:00)
[2022-09-28] MEDS ORDERED: MINERAL OIL/PET HY-PHL TOPICAL OINTMENT 454 GM JAR TP SCH (10:00)
[2022-09-28] MEDS: POTASSIUM CHLORIDE 20 MEQ PREMIX IVPB 100 ML IVPB SCH ×2 (12:10→15:18)
[2022-09-28] MEDS: NAPH,MB-DB/K PH,MBDB POWDER PACKET PO SCH (16:44)
[2022-09-28] MEDS: HEPARIN - 25,000 UNIT in SODIUM CHLORIDE 495 ML IV SCH ×4 (17:45→20:12)
[2022-09-28] MEDS ORDERED: ACETAMINOPHEN 1000 MG/100 ML BAG IVPB PRN (19:44)
[2022-09-28] MEDS ORDERED: HEPARIN NA (PORCINE) 5,000 UNITS/ML 1ML VIAL IVPUSH PRN ×4 (19:44)
[2022-09-28] MEDS ORDERED: DEXTROSE 5%-WATER - 1,000 ML IV SCH (19:44)
[2022-09-28] MEDS: NYSTATIN POWDER 100,000 UNITS/GM - 15 GM TOPICAL POWDER TP SCH (22:12)
[2022-09-28] MEDS: ZINC OXIDE 20% TOPICAL OINTMENT 30 GM TUBE TP SCH (22:25)
[2022-09-29] MEDS: MEROPENEM 1 GM in DEXTROSE 5%-WATER 100 ML IVPB SCH ×3 (02:50→17:48)
[2022-09-29 08:21] LABS: HEMATOCRIT 39.4 % (35.4-49); HEMOGLOBIN 12.6 GM/dL (11.7-16.9); MCH 29.4 pg (25.7-33.7); MCHC 32.1 g/dl (32.0-35.9); MEAN CELL VOLUME 91.5 fl (80-96); MEAN PLT VOLUME 11.4 fl (7.5-11.1); PLATELET COUNT 86 10^3/uL (134-434); RDW 15.2 % (11.9-15.9); WHITE BLOOD COUNT 16.1 K/mm3 (4.0-10.0)
[2022-09-29 08:40] LABS: CREATININE 0.8 mg/dL (0.55-1.3); PHOSPHOROUS 1.7 mg/dL (2.5-4.9)
[2022-09-29 08:41] LABS: BILIRUBIN,TOTAL 0.7 mg/dL (0.2-1)
[2022-09-29 08:42] LABS: ALBUMIN 2.5 g/dl (3.4-5.0); BLOOD UREA NITROGEN 27.4 mg/dL (7-18); TOT PROT 5.2 g/dl (6.4-8.2)
[2022-09-29 08:43] LABS: CALCIUM 7.6 mg/dL (8.5-10.1)
[2022-09-29 08:44] LABS: MAGNESIUM 2.1 mg/dL (1.8-2.4)
[2022-09-29] MEDS: NAPH,MB-DB/K PH,MBDB POWDER PACKET PO SCH ×4 (09:36→21:35)
[2022-09-29] MEDS: PANTOPRAZOLE SODIUM 40 MG VIAL IVPUSH SCH (09:36)
[2022-09-29] MEDS: ZINC OXIDE 20% TOPICAL OINTMENT 30 GM TUBE TP SCH ×2 (09:36→21:35)
[2022-09-29] MEDS: NYSTATIN POWDER 100,000 UNITS/GM - 15 GM TOPICAL POWDER TP SCH ×2 (09:36→21:35)
[2022-09-29] MEDS ORDERED: POTASSIUM CHLORIDE TABS 20 MEQ TABLET.ER (FP) PO ONE (11:31)
[2022-09-29] MEDS: POTASSIUM CHLORIDE 20 MEQ in DEXTROSE 5%-WATER - 1,000 ML IV SCH (13:31)
[2022-09-29] MEDS: HEPARIN NA (PORCINE) 5,000 UNITS/ML 1ML VIAL SQ SCH (21:35)
[2022-09-30] MEDS: MEROPENEM 1 GM in DEXTROSE 5%-WATER 100 ML IVPB SCH ×3 (01:58→18:02)
[2022-09-30] MEDS: NAPH,MB-DB/K PH,MBDB POWDER PACKET PO SCH ×2 (05:47→21:41)
[2022-09-30] MEDS: HEPARIN NA (PORCINE) 5,000 UNITS/ML 1ML VIAL SQ SCH ×3 (05:47→21:52)
[2022-09-30 08:00] LABS: HEMATOCRIT 40.1 % (35.4-49); HEMOGLOBIN 13.3 GM/dL (11.7-16.9); MCH 30.1 pg (25.7-33.7); MCHC 33.3 g/dl (32.0-35.9); MEAN CELL VOLUME 90.6 fl (80-96); MEAN PLT VOLUME 11.3 fl (7.5-11.1); PLATELET COUNT 94 10^3/uL (134-434); RBC 4.42 M/mm3 (4.00-5.60); RDW 14.5 % (11.9-15.9); WHITE BLOOD COUNT 6.7 K/mm3 (4.0-10.0)
[2022-09-30 08:05] LABS: CALCIUM 8.1 mg/dL (8.5-10.1)
[2022-09-30 08:06] LABS: ALBUMIN 2.5 g/dl (3.4-5.0); BLOOD UREA NITROGEN 16.9 mg/dL (7-18); MAGNESIUM 1.8 mg/dL (1.8-2.4)
[2022-09-30 08:09] LABS: CREATININE 0.7 mg/dL (0.55-1.3); PHOSPHOROUS 1.8 mg/dL (2.5-4.9)
[2022-09-30 08:10] LABS: BILIRUBIN,TOTAL 0.6 mg/dL (0.2-1); TOT PROT 5.4 g/dl (6.4-8.2)
[2022-09-30 09:27] LABS: ANISOCYTOSIS 0; MACROCYTOSIS 0
[2022-09-30] MEDS ORDERED: CARVEDILOL 3.125 MG TABLET (FP) PO SCH (10:00)
[2022-09-30] MEDS: POTASSIUM CHLORIDE 20 MEQ in DEXTROSE 5%-WATER - 1,000 ML IV SCH ×2 (10:55→18:45)
[2022-09-30] MEDS: NYSTATIN POWDER 100,000 UNITS/GM - 15 GM TOPICAL POWDER TP SCH ×2 (10:58→21:41)
[2022-09-30] MEDS: ZINC OXIDE 20% TOPICAL OINTMENT 30 GM TUBE TP SCH ×2 (10:58→21:42)
[2022-09-30] MEDS: PANTOPRAZOLE SODIUM 40 MG VIAL IVPUSH SCH (10:58)
[2022-09-30] MEDS: LISINOPRIL 10 MG TABLET PO SCH (14:04)
[2022-09-30] MEDS ORDERED: HEPARIN NA (PORCINE) 5,000 UNITS/ML 1ML VIAL IVPUSH PRN ×2 (20:00)
[2022-09-30] MEDS ORDERED: ACETAMINOPHEN 1000 MG/100 ML BAG IVPB PRN (20:00)
[2022-09-30] MEDS: CARVEDILOL 6.25 MG TABLET (FP) PO SCH (21:52)
[2022-10-01] MEDS: MEROPENEM 1 GM in DEXTROSE 5%-WATER 100 ML IVPB SCH ×2 (02:59→10:27)
[2022-10-01] MEDS: POTASSIUM CHLORIDE 20 MEQ in DEXTROSE 5%-WATER - 1,000 ML IV SCH ×2 (03:03→10:26)
[2022-10-01] MEDS: HEPARIN NA (PORCINE) 5,000 UNITS/ML 1ML VIAL SQ SCH ×2 (05:48→15:27)
[2022-10-01 08:18] LABS: HEMATOCRIT 39.8 % (35.4-49); HEMOGLOBIN 13.3 GM/dL (11.7-16.9); MCH 30.1 pg (25.7-33.7); MCHC 33.5 g/dl (32.0-35.9); MEAN CELL VOLUME 89.8 fl (80-96); MEAN PLT VOLUME 10.4 fl (7.5-11.1); PLATELET COUNT 102 10^3/uL (134-434); RBC 4.43 M/mm3 (4.00-5.60); RDW 14.6 % (11.9-15.9); WHITE BLOOD COUNT 4.8 K/mm3 (4.0-10.0)
[2022-10-01 08:28] LABS: CALCIUM 7.9 mg/dL (8.5-10.1)
[2022-10-01 08:29] LABS: BLOOD UREA NITROGEN 15.4 mg/dL (7-18)
[2022-10-01 08:32] LABS: CREATININE 0.6 mg/dL (0.55-1.3)
[2022-10-01] MEDS ORDERED: PANTOPRAZOLE SODIUM 40 MG VIAL IVPUSH SCH (10:00)
[2022-10-01] MEDS: LISINOPRIL 10 MG TABLET PO SCH (10:27)
[2022-10-01] MEDS: TAMSULOSIN HCL 0.4 MG CAP PO SCH (10:27)
[2022-10-01] MEDS: ZINC OXIDE 20% TOPICAL OINTMENT 30 GM TUBE TP SCH ×2 (10:27→21:01)
[2022-10-01] MEDS: PANTOPRAZOLE 40 MG TABLET PO SCH (10:27)
[2022-10-01] MEDS: NAPH,MB-DB/K PH,MBDB POWDER PACKET PO SCH ×2 (10:27→21:01)
[2022-10-01] MEDS: CARVEDILOL 6.25 MG TABLET (FP) PO SCH ×2 (10:27→21:01)
[2022-10-01] MEDS: NYSTATIN POWDER 100,000 UNITS/GM - 15 GM TOPICAL POWDER TP SCH ×2 (10:28→21:01)
[2022-10-01] MEDS: FUROSEMIDE 40 MG TABLET (FP) PO SCH (12:34)
[2022-10-01] MEDS: guaiFENesin 200 MG/10 ML 10 ML UNIT-DOSE CUPS PO PRN (20:02)
[2022-10-02] MEDS ORDERED: CARVEDILOL 6.25 MG TABLET (FP) PO SCH (07:47)
[2022-10-02] MEDS ORDERED: CEFTRIAXONE 1 GM in DEXTROSE 5%-WATER - 50 ML IVPB SCH (10:00)
[2022-10-02 10:12] LABS: HEMATOCRIT 39.9 % (35.4-49); HEMOGLOBIN 13.5 GM/dL (11.7-16.9); MCH 30.5 pg (25.7-33.7); MCHC 33.7 g/dl (32.0-35.9); MEAN CELL VOLUME 90.3 fl (80-96); MEAN PLT VOLUME 9.8 fl (7.5-11.1); PLATELET COUNT 126 10^3/uL (134-434); RBC 4.42 M/mm3 (4.00-5.60); RDW 14.4 % (11.9-15.9); WHITE BLOOD COUNT 4.5 K/mm3 (4.0-10.0)
[2022-10-02 10:34] LABS: CALCIUM 7.8 mg/dL (8.5-10.1)
[2022-10-02 10:35] LABS: BLOOD UREA NITROGEN 15.2 mg/dL (7-18)
[2022-10-02 10:38] LABS: CREATININE 0.6 mg/dL (0.55-1.3)
[2022-10-02] MEDS: TAMSULOSIN HCL 0.4 MG CAP PO SCH (11:22)
[2022-10-02] MEDS: NAPH,MB-DB/K PH,MBDB POWDER PACKET PO SCH ×2 (11:22→22:52)
[2022-10-02] MEDS: NYSTATIN POWDER 100,000 UNITS/GM - 15 GM TOPICAL POWDER TP SCH ×2 (11:22→23:08)
[2022-10-02] MEDS: FUROSEMIDE 40 MG TABLET (FP) PO SCH (11:22)
[2022-10-02] MEDS: PANTOPRAZOLE 40 MG TABLET PO SCH (11:22)
[2022-10-02] MEDS: ZINC OXIDE 20% TOPICAL OINTMENT 30 GM TUBE TP SCH ×2 (11:23→23:07)
[2022-10-02 12:32] LABS: MAGNESIUM 1.6 mg/dL (1.8-2.4)
[2022-10-02] MEDS ORDERED: MAGNESIUM OXIDE 400 MG TABLET (FP) PO ONE (12:35)
[2022-10-02 12:36] LABS: PHOSPHOROUS 3.1 mg/dL (2.5-4.9)
[2022-10-02] MEDS ORDERED: MAGNESIUM SULF 50% (8.12 MEQ/2 ML-1 GM VIAL) IVPB ONE (13:32)
[2022-10-02] MEDS: APIXABAN 5 MG TABLET PO SCH (22:52)
[2022-10-02] MEDS: guaiFENesin 200 MG/10 ML 10 ML UNIT-DOSE CUPS PO PRN (22:52)
[2022-10-03] MEDS: FUROSEMIDE 40 MG/4 ML INJECTABLE VIAL IVPUSH SCH ×2 (06:45→14:36)
[2022-10-03 07:14] LABS: HEMATOCRIT 40.6 % (35.4-49); HEMOGLOBIN 13.3 GM/dL (11.7-16.9); MCH 29.7 pg (25.7-33.7); MCHC 32.7 g/dl (32.0-35.9); MEAN PLT VOLUME 9.4 fl (7.5-11.1); PLATELET COUNT 150 10^3/uL (134-434); RBC 4.46 M/mm3 (4.00-5.60); RDW 14.8 % (11.9-15.9); WHITE BLOOD COUNT 4.7 K/mm3 (4.0-10.0)
[2022-10-03 07:42] LABS: CALCIUM 7.6 mg/dL (8.5-10.1)
[2022-10-03 07:46] LABS: CREATININE 0.6 mg/dL (0.55-1.3)
[2022-10-03] MEDS: PANTOPRAZOLE 40 MG TABLET PO SCH (09:28)
[2022-10-03] MEDS: NYSTATIN POWDER 100,000 UNITS/GM - 15 GM TOPICAL POWDER TP SCH ×2 (09:29→21:53)
[2022-10-03] MEDS: NAPH,MB-DB/K PH,MBDB POWDER PACKET PO SCH ×2 (09:29→21:54)
[2022-10-03] MEDS: TAMSULOSIN HCL 0.4 MG CAP PO SCH (09:29)
[2022-10-03] MEDS: ZINC OXIDE 20% TOPICAL OINTMENT 30 GM TUBE TP SCH ×2 (09:29→21:54)
[2022-10-03] MEDS: CARVEDILOL 6.25 MG TABLET (FP) PO SCH ×2 (09:29→21:53)
[2022-10-03] MEDS: APIXABAN 5 MG TABLET PO SCH ×2 (09:29→21:53)
[2022-10-03 15:01] VITALS: BMI 34.5
[2022-10-03 17:42] LABS: MAGNESIUM 1.9 mg/dL (1.8-2.4)
[2022-10-03] MEDS: guaiFENesin 200 MG/10 ML 10 ML UNIT-DOSE CUPS PO PRN (21:55)
[2022-10-03] MEDS: ACETAMINOPHEN 500 MG TABLET (FP) PO PRN (21:55)
[2022-10-04] MEDS: FUROSEMIDE 40 MG/4 ML INJECTABLE VIAL IVPUSH SCH ×2 (06:34→09:54)
[2022-10-04 08:43] LABS: HEMATOCRIT 43.7 % (35.4-49); HEMOGLOBIN 14.4 GM/dL (11.7-16.9); MCH 29.9 pg (25.7-33.7); MCHC 32.9 g/dl (32.0-35.9); MEAN CELL VOLUME 90.7 fl (80-96); MEAN PLT VOLUME 9.1 fl (7.5-11.1); PLATELET COUNT 174 10^3/uL (134-434); RBC 4.82 M/mm3 (4.00-5.60); RDW 14.3 % (11.9-15.9); WHITE BLOOD COUNT 3.9 K/mm3 (4.0-10.0)
[2022-10-04 09:12] LABS: CALCIUM 8.1 mg/dL (8.5-10.1)
[2022-10-04 09:13] LABS: ALBUMIN 2.4 g/dl (3.4-5.0); BLOOD UREA NITROGEN 17.8 mg/dL (7-18)
[2022-10-04 09:16] LABS: CREATININE 0.6 mg/dL (0.55-1.3); PHOSPHOROUS 2.9 mg/dL (2.5-4.9)
[2022-10-04 09:17] LABS: BILIRUBIN,TOTAL 0.6 mg/dL (0.2-1); TOT PROT 5.4 g/dl (6.4-8.2)
[2022-10-04] MEDS: TAMSULOSIN HCL 0.4 MG CAP PO SCH (09:54)
[2022-10-04] MEDS: APIXABAN 5 MG TABLET PO SCH ×2 (09:54→21:27)
[2022-10-04] MEDS: NAPH,MB-DB/K PH,MBDB POWDER PACKET PO SCH ×2 (09:54→21:32)
[2022-10-04] MEDS: PANTOPRAZOLE 40 MG TABLET PO SCH (09:55)
[2022-10-04] MEDS: SACUBITRIL/VALSARTAN 24 MG-26 MG TABLET PO SCH ×2 (09:55→21:32)
[2022-10-04] MEDS: NYSTATIN POWDER 100,000 UNITS/GM - 15 GM TOPICAL POWDER TP SCH ×2 (09:55→21:32)
[2022-10-04] MEDS: CARVEDILOL 6.25 MG TABLET (FP) PO SCH ×2 (09:55→21:27)
[2022-10-04] MEDS: ZINC OXIDE 20% TOPICAL OINTMENT 30 GM TUBE TP SCH ×2 (09:56→21:33)
[2022-10-04] MEDS: ACETAMINOPHEN 500 MG TABLET (FP) PO PRN (21:28)
[2022-10-05 08:17] LABS: ALBUMIN 2.3 g/dl (3.4-5.0); BLOOD UREA NITROGEN 17.1 mg/dL (7-18); CALCIUM 7.6 mg/dL (8.5-10.1)
[2022-10-05 08:20] LABS: CREATININE 0.6 mg/dL (0.55-1.3)
[2022-10-05 08:21] LABS: BILIRUBIN,TOTAL 0.7 mg/dL (0.2-1); TOT PROT 5.2 g/dl (6.4-8.2)
[2022-10-05 08:26] LABS: HEMATOCRIT 44.8 % (35.4-49); HEMOGLOBIN 14.6 GM/dL (11.7-16.9); MCH 29.7 pg (25.7-33.7); MCHC 32.7 g/dl (32.0-35.9); MEAN CELL VOLUME 90.8 fl (80-96); MEAN PLT VOLUME 9.4 fl (7.5-11.1); PLATELET COUNT 194 10^3/uL (134-434); RBC 4.93 M/mm3 (4.00-5.60); RDW 14.5 % (11.9-15.9); WHITE BLOOD COUNT 3.6 K/mm3 (4.0-10.0)
[2022-10-05] MEDS: TAMSULOSIN HCL 0.4 MG CAP PO SCH (08:44)
[2022-10-05] MEDS: APIXABAN 5 MG TABLET PO SCH ×2 (10:05→21:23)
[2022-10-05] MEDS: NAPH,MB-DB/K PH,MBDB POWDER PACKET PO SCH ×2 (10:05→21:24)
[2022-10-05] MEDS: CARVEDILOL 6.25 MG TABLET (FP) PO SCH ×2 (10:05→21:25)
[2022-10-05] MEDS: FUROSEMIDE 40 MG/4 ML INJECTABLE VIAL IVPUSH SCH (10:05)
[2022-10-05] MEDS: PANTOPRAZOLE 40 MG TABLET PO SCH (10:05)
[2022-10-05] MEDS: ZINC OXIDE 20% TOPICAL OINTMENT 30 GM TUBE TP SCH ×2 (10:06→21:28)
[2022-10-05] MEDS: NYSTATIN POWDER 100,000 UNITS/GM - 15 GM TOPICAL POWDER TP SCH ×2 (10:06→21:28)
[2022-10-05] MEDS: SACUBITRIL/VALSARTAN 24 MG-26 MG TABLET PO SCH ×2 (11:23→21:23)
[2022-10-06 08:33] LABS: BLOOD UREA NITROGEN 15.1 mg/dL (7-18); CALCIUM 7.7 mg/dL (8.5-10.1)
[2022-10-06 08:34] LABS: ALBUMIN 2.4 g/dl (3.4-5.0)
[2022-10-06 08:37] LABS: CREATININE 0.6 mg/dL (0.55-1.3)
[2022-10-06 08:38] LABS: BILIRUBIN,TOTAL 0.8 mg/dL (0.2-1); TOT PROT 5.2 g/dl (6.4-8.2)
[2022-10-06] MEDS: PANTOPRAZOLE 40 MG TABLET PO SCH (09:50)
[2022-10-06] MEDS: TAMSULOSIN HCL 0.4 MG CAP PO SCH (09:50)
[2022-10-06] MEDS: CARVEDILOL 6.25 MG TABLET (FP) PO SCH ×2 (09:51→21:32)
[2022-10-06] MEDS: APIXABAN 5 MG TABLET PO SCH ×2 (09:51→21:31)
[2022-10-06] MEDS: NYSTATIN POWDER 100,000 UNITS/GM - 15 GM TOPICAL POWDER TP SCH ×2 (09:52→21:32)
[2022-10-06] MEDS: ZINC OXIDE 20% TOPICAL OINTMENT 30 GM TUBE TP SCH ×2 (09:52→21:32)
[2022-10-06] MEDS: NAPH,MB-DB/K PH,MBDB POWDER PACKET PO SCH ×2 (09:52→21:32)
[2022-10-06] MEDS: SACUBITRIL/VALSARTAN 24 MG-26 MG TABLET PO SCH ×2 (09:52→21:32)
[2022-10-06] MEDS: FUROSEMIDE 40 MG/4 ML INJECTABLE VIAL IVPUSH SCH (10:54)
[2022-10-07] MEDS: TAMSULOSIN HCL 0.4 MG CAP PO SCH (09:10)
[2022-10-07] MEDS: SACUBITRIL/VALSARTAN 24 MG-26 MG TABLET PO SCH ×2 (09:35→22:00)
[2022-10-07] MEDS: PANTOPRAZOLE 40 MG TABLET PO SCH (09:35)
[2022-10-07] MEDS: FUROSEMIDE 40 MG TABLET (FP) PO SCH ×2 (09:35→10:00)
[2022-10-07] MEDS: APIXABAN 5 MG TABLET PO SCH ×2 (09:35→22:00)
[2022-10-07] MEDS: CARVEDILOL 6.25 MG TABLET (FP) PO SCH (09:36)
[2022-10-07] MEDS: NAPH,MB-DB/K PH,MBDB POWDER PACKET PO SCH ×2 (09:36→22:00)
[2022-10-07] MEDS: NYSTATIN POWDER 100,000 UNITS/GM - 15 GM TOPICAL POWDER TP SCH ×2 (09:37→22:00)
[2022-10-07] MEDS: ZINC OXIDE 20% TOPICAL OINTMENT 30 GM TUBE TP SCH ×2 (09:37→22:01)
[2022-10-07] MEDS ORDERED: CARVEDILOL 6.25 MG TABLET (FP) PO ONE (13:18)
[2022-10-07] MEDS: guaiFENesin 200 MG/10 ML 10 ML UNIT-DOSE CUPS PO PRN (22:00)
[2022-10-07] MEDS: CARVEDILOL 12.5 MG TABLET (FP) PO SCH (22:01)
[2022-10-08 07:52] LABS: HEMATOCRIT 41.8 % (35.4-49); HEMOGLOBIN 13.7 GM/dL (11.7-16.9); MCH 29.9 pg (25.7-33.7); MCHC 32.9 g/dl (32.0-35.9); MEAN CELL VOLUME 90.9 fl (80-96); MEAN PLT VOLUME 9.3 fl (7.5-11.1); PLATELET COUNT 198 10^3/uL (134-434); RDW 14.3 % (11.9-15.9); WHITE BLOOD COUNT 3.4 K/mm3 (4.0-10.0)
[2022-10-08 08:40] LABS: CREATININE 0.6 mg/dL (0.55-1.3)
[2022-10-08] MEDS: TAMSULOSIN HCL 0.4 MG CAP PO SCH (09:07)
[2022-10-08] MEDS: SACUBITRIL/VALSARTAN 24 MG-26 MG TABLET PO SCH ×2 (10:50→21:49)
[2022-10-08] MEDS: NAPH,MB-DB/K PH,MBDB POWDER PACKET PO SCH ×2 (10:50→21:49)
[2022-10-08] MEDS: PANTOPRAZOLE 40 MG TABLET PO SCH (10:50)
[2022-10-08] MEDS: APIXABAN 5 MG TABLET PO SCH ×2 (10:50→21:49)
[2022-10-08] MEDS: NYSTATIN POWDER 100,000 UNITS/GM - 15 GM TOPICAL POWDER TP SCH ×2 (10:52→21:49)
[2022-10-08] MEDS: ZINC OXIDE 20% TOPICAL OINTMENT 30 GM TUBE TP SCH ×2 (10:52→21:49)
[2022-10-08] MEDS: CARVEDILOL 12.5 MG TABLET (FP) PO SCH ×2 (10:52→21:50)
[2022-10-08] MEDS: FUROSEMIDE 40 MG TABLET (FP) PO SCH (10:52)
[2022-10-08] MEDS ORDERED: LOPERAMIDE HCL 2 MG CAPSULE PO PRN (18:27)
[2022-10-09 02:34] VITALS: TEMP 97.9
[2022-10-09 07:49] LABS: HEMATOCRIT 42.9 % (35.4-49); HEMOGLOBIN 14.1 GM/dL (11.7-16.9); MCH 29.9 pg (25.7-33.7); MEAN CELL VOLUME 90.8 fl (80-96); MEAN PLT VOLUME 9.5 fl (7.5-11.1); PLATELET COUNT 201 10^3/uL (134-434); RBC 4.72 M/mm3 (4.00-5.60); RDW 14.1 % (11.9-15.9); WHITE BLOOD COUNT 3.1 K/mm3 (4.0-10.0)
[2022-10-09 08:06] LABS: BLOOD UREA NITROGEN 14.5 mg/dL (7-18); CALCIUM 7.8 mg/dL (8.5-10.1)
[2022-10-09 08:10] LABS: CREATININE 0.5 mg/dL (0.55-1.3)
[2022-10-09] MEDS: TAMSULOSIN HCL 0.4 MG CAP PO SCH (09:27)
[2022-10-09 09:47] VITALS: BP 105/53; RESP 16
[2022-10-09] MEDS: PANTOPRAZOLE 40 MG TABLET PO SCH (09:50)
[2022-10-09] MEDS: NAPH,MB-DB/K PH,MBDB POWDER PACKET PO SCH (09:50)
[2022-10-09] MEDS: APIXABAN 5 MG TABLET PO SCH (09:50)
[2022-10-09] MEDS: SACUBITRIL/VALSARTAN 24 MG-26 MG TABLET PO SCH (09:50)
[2022-10-09] MEDS: CARVEDILOL 12.5 MG TABLET (FP) PO SCH (09:53)
[2022-10-09] MEDS: ZINC OXIDE 20% TOPICAL OINTMENT 30 GM TUBE TP SCH (09:55)
[2022-10-09] MEDS: FUROSEMIDE 40 MG TABLET (FP) PO SCH (09:55)
[2022-10-09] MEDS: NYSTATIN POWDER 100,000 UNITS/GM - 15 GM TOPICAL POWDER TP SCH (09:55)
[2022-10-09 09:56] VITALS: PULSE 54
== END 2022-10-09 15:06 | DRG 871 ==
LOC: JER 17:43 → JERBED 22:12 → JICU 09-26 22:12 → J4S 10-01 21:56 → J4W 10-02 21:36
PROVIDERS: ADMIT Family Medicine; ATTEND Internal Medicine
PROC: 05HM33Z Insertion of Infusion Device into Right Internal Jugular Vein, Percutaneous Approach (ICD-10-PCS; principal; 2022-09-26)
PROC: B543ZZA Ultrasonography of Right Jugular Veins, Guidance (ICD-10-PCS; 2022-09-26)
DX: A41.51 Sepsis due to Escherichia coli [E. coli] (principal); G93.41 Metabolic encephalopathy; J18.9 Pneumonia, unspecified organism; R65.21 Severe sepsis with septic shock; I50.21 Acute systolic (congestive) heart failure; I21.A1 Myocardial infarction type 2; I21.4 Non-ST elevation (NSTEMI) myocardial infarction; N17.0 Acute kidney failure with tubular necrosis; N39.0 Urinary tract infection, site not specified; J98.11 Atelectasis; E87.0 Hyperosmolality and hypernatremia; M62.82 Rhabdomyolysis; N13.30 Unspecified hydronephrosis; I42.0 Dilated cardiomyopathy; I82.402 Acute embolism and thrombosis of unspecified deep veins of left lower extremity; N35.919 Unspecified urethral stricture, male, unspecified site; Z85.46 Personal history of malignant neoplasm of prostate; R33.9 Retention of urine, unspecified; I44.0 Atrioventricular block, first degree; R06.00 Dyspnea, unspecified; E87.6 Hypokalemia; R60.0 Localized edema; D69.6 Thrombocytopenia, unspecified; R09.02 Hypoxemia; N13.9 Obstructive and reflux uropathy, unspecified; I11.0 Hypertensive heart disease with heart failure; E66.9 Obesity, unspecified; Z68.34 Body mass index [BMI] 34.0-34.9, adult; E83.42 Hypomagnesemia; B96.20 Unspecified Escherichia coli [E. coli] as the cause of diseases classified elsewhere; D72.829 Elevated white blood cell count, unspecified; E83.39 Other disorders of phosphorus metabolism
CPT/HCPCS: 0241U-QW; 36415; 36600; 51102; 71045-TC-FY; 71275-TC; 74176-TC; 80048; 80053; 80061; 81003; 82248; 82436; 82550; 82553; 82803; 82962; 83036; 83605; 83735; 83880; 84100; 84132; 84133; 84300; 84443; 84484; 85025; 85027; 85379; 85610; 85730; 86850; 86900; 86901; 87040; 87086; 87186; 93005; 93010; 93306-TC; 93970-TC; 94010; 97116-GP; 97161-GP; 99285-25; A4358; C1729; C1769; C9803-CS; J1644; U0003; U0005

== ENCOUNTER 2023-03-06 04:10 | Day surgery (SDC) | payer OTHER, BC ==
[2023-03-05 09:15] VITALS: BMI 27.8
[2023-03-06] MEDS ORDERED: ACETAMINOPHEN 1000 MG/100 ML BAG IVPB ONE (14:20)
[2023-03-06] MEDS ORDERED: ceFAZolin SODIUM 1 GM VIAL IVPB ONE (14:30)
[2023-03-06] MEDS ORDERED: DEXTROSE 5%-0.45% SALINE 1,000 ML IV SCH (14:30)
[2023-03-06] MEDS ORDERED: oxyCODONE HCL 5 MG TABLET PO PRN (14:59)
[2023-03-06] MEDS ORDERED: ONDANSETRON 4 MG/2 ML VIAL IVPUSH PRN (14:59)
[2023-03-06 17:10] VITALS: RESP 20; TEMP 97.1
[2023-03-06 17:33] VITALS: BP 137/62; PULSE 64
== END 2023-03-06 17:35 | disposition home or self-care (01) ==
LOC: JASU-SURG 04:10
PROVIDERS: ATTEND Urology
PROC: 0TND8ZZ Release Urethra, Via Natural or Artificial Opening Endoscopic (ICD-10-PCS; principal; 2023-03-06 14:00)
PROC: 0TPB80Z Removal of Drainage Device from Bladder, Via Natural or Artificial Opening Endoscopic (ICD-10-PCS; 2023-03-06 14:00)
DX: N35.919 Unspecified urethral stricture, male, unspecified site (principal); R33.9 Retention of urine, unspecified; N32.0 Bladder-neck obstruction
CPT/HCPCS: 94760

== ENCOUNTER 2025-05-01 19:38 | Inpatient (IN) | payer OTHER, BC ==
[2025-05-01 20:40] LABS: ABSOLUTE IMMATURE GRANULOCYTES 0.14 x10^3/uL (0.0-0.031); BASOPHILS # 0.06 x10^3/uL (0.01-0.08); EOSINOPHIL % 0.6 % (0.8-7.0); EOSINOPHILS # 0.06 x10^3/uL (0.04-0.54); MCHC 32.6 g/dl (32.3-36.5); MEAN CELL VOLUME 90.8 fl (79.0-92.2); MEAN PLT VOLUME 9.7 fl (9.4-12.4); MONOCYTE # 1.07 x10^3/uL (0.30-0.82); MONOCYTE % 11.1 % (5.3-12.2); RDW 13.6 % (12.2-16.6)
[2025-05-01 20:53] LABS: INR 1.53 (0.83-1.09); PROTHROMBIN TIME (PATIENT) 16.7 SEC (9.7-13.0)
[2025-05-01 20:55] LABS: ACTIVATED PTT 30.0 SECONDS (25.2-36.5)
[2025-05-01 21:00] LABS: CO2 32.0 mmol/L (21-32); GLUCOSE,RANDOM 131.0 mg/dL (74-106)
[2025-05-01 21:03] LABS: CREATININE 0.7 mg/dL (0.55-1.3); SGOT/AST 15.0 U/L (15-37); SGPT/ALT 14.0 U/L (13-61)
[2025-05-01 21:05] LABS: TOT PROT 6.8 g/dl (6.4-8.2)
[2025-05-01 21:06] LABS: ALK PHOS 138.0 U/L (45-117)
[2025-05-01] MEDS ORDERED: ACETAMINOPHEN INJECTION 100 ML ONE (21:11)
[2025-05-01] MEDS: ACETAMINOPHEN 1000 MG/100 ML BAG IVPB ONE (21:16)
[2025-05-01 23:09] LABS: HCV DIAGNOSTIC IN-HOUSE W/RFLX NON-REACTIVE (NONREACTIVE)
[2025-05-01 23:10] LABS: HIV INTERPRETATION NEGATIVE (NEGATIVE)
[2025-05-01 23:42] LABS: EPI CELLS 34 /uL (0-25.1); HYALINE CASTS 2 /uL (0-3.1); URINE APPEARANCE TURBID; URINE BACTERIA 263 /uL (0-1359); URINE BILIRUBIN NEGATIVE (NEGATIVE); URINE COLOR YELLOW; URINE GLUCOSE (UA) NEGATIVE (NEGATIVE); URINE KETONE 1+ (NEGATIVE); URINE LEUK ESTERASE 1+ (NEGATIVE); URINE NITRITE NEGATIVE (NEGATIVE); URINE PROTEIN 2+ (NEGATIVE); URINE UROBILINOGEN 1.0 mg/dL (0.2-1.0); URINE WBC 557 /uL (0-25.8)
[2025-05-01] MEDS ORDERED: VANCOMYCIN PREMIX 1.75 GM 1,750 MG/350 ML PIGGYBACK IVPB ONE (23:45)
[2025-05-02] LABS: URINE RBC 1202.1 /uL (0-23.9)
[2025-05-02] MEDS ORDERED: MEROPENEM 1 GM VIAL (RESTRICTED TO ID) IVPB ONE (00:51)
[2025-05-02] MEDS: MEROPENEM 1 GM in DEXTROSE 5%-WATER 100 ML IVPB ONE (01:01)
[2025-05-02 02:54] VITALS: BMI 24.6
[2025-05-02] MEDS: VANCOMYCIN PREMIX 1.75 GM 1,750 MG/350 ML PIGGYBACK IVPB ONE (03:00)
[2025-05-02] MEDS: POTASSIUM CHLORIDE ORAL LIQUID 20 MEQ/15 ML PO ONE (03:02)
[2025-05-02] MEDS: ACETAMINOPHEN 1000 MG/100 ML BAG IVPB PRN (03:52)
[2025-05-02 09:07] LABS: ABSOLUTE IMMATURE GRANULOCYTES 0.12 x10^3/uL (0.0-0.031); BASOPHILS # 0.06 x10^3/uL (0.01-0.08); EOSINOPHIL % 1.7 % (0.8-7.0); EOSINOPHILS # 0.14 x10^3/uL (0.04-0.54); MCHC 32.7 g/dl (32.3-36.5); MEAN CELL VOLUME 89.5 fl (79.0-92.2); MEAN PLT VOLUME 9.8 fl (9.4-12.4); MONOCYTE # 1.04 x10^3/uL (0.30-0.82); MONOCYTE % 12.8 % (5.3-12.2); RDW 13.8 % (12.2-16.6)
[2025-05-02] MEDS: APIXABAN 5 MG TABLET PO SCH (09:20)
[2025-05-02] MEDS: MEROPENEM 1 GM in DEXTROSE 5%-WATER 100 ML IVPB SCH (09:20)
[2025-05-02] MEDS: SACUBITRIL/VALSARTAN 24 MG-26 MG TABLET PO SCH (09:20)
[2025-05-02] MEDS: TAMSULOSIN HCL 0.4 MG CAP PO SCH (09:20)
[2025-05-02 09:41] LABS: CO2 30.0 mmol/L (21-32)
[2025-05-02 09:42] LABS: GLUCOSE,RANDOM 115.0 mg/dL (74-106)
[2025-05-02 09:45] LABS: CREATININE 0.5 mg/dL (0.55-1.3)
[2025-05-02] MEDS ORDERED: MEROPENEM 1 GM in DEXTROSE 5%-WATER 100 ML IVPB SCH (10:00)
[2025-05-02] MEDS: CARVEDILOL 3.125 MG TABLET (FP) PO SCH (10:47)
[2025-05-03 11:21] LABS: ABSOLUTE IMMATURE GRANULOCYTES 0.14 x10^3/uL (0.0-0.031); BASOPHILS # 0.07 x10^3/uL (0.01-0.08); EOSINOPHIL % 2.0 % (0.8-7.0); EOSINOPHILS # 0.18 x10^3/uL (0.04-0.54); MCHC 32.1 g/dl (32.3-36.5); MEAN CELL VOLUME 90.7 fl (79.0-92.2); MEAN PLT VOLUME 10.0 fl (9.4-12.4); MONOCYTE # 0.97 x10^3/uL (0.30-0.82); MONOCYTE % 10.7 % (5.3-12.2); RDW 13.8 % (12.2-16.6)
[2025-05-03 11:51] LABS: CO2 34.0 mmol/L (21-32); GLUCOSE,RANDOM 111.0 mg/dL (74-106)
[2025-05-03 11:54] LABS: CREATININE 0.5 mg/dL (0.55-1.3); SGOT/AST 13.0 U/L (15-37); SGPT/ALT 11.0 U/L (13-61)
[2025-05-03 11:56] LABS: TOT PROT 6.0 g/dl (6.4-8.2)
[2025-05-03 11:57] LABS: ALK PHOS 128.0 U/L (45-117)
[2025-05-03] MEDS: POTASSIUM CHLORIDE ORAL LIQUID 20 MEQ/15 ML PO ONE (14:29)
[2025-05-03 14:33] VITALS: BP 130/80; PULSE 74; RESP 16; TEMP 98
[2025-05-03] MEDS ORDERED: DEXTROSE 5%-NORMAL SALINE 1,000 ML IV SCH (21:00)
[2025-05-04 18:10] LABS: FREE KAPPA,SERUM 25.5 mg/L (3.3-19.4)
[2025-05-08 19:11] LABS: IG A QN SERUM. 337 mg/dL (61-437)
== END 2025-05-03 14:56 | disposition short-term general hospital (02) | DRG 543 ==
LOC: JER 19:38 → JERBED 23:43 → J6S 05-02 01:45 → OBSVTOIN 05-02 10:13
PROVIDERS: ADMIT Internal Medicine; ATTEND Internal Medicine
DX: C79.51 Secondary malignant neoplasm of bone (principal); I50.20 Unspecified systolic (congestive) heart failure; N39.0 Urinary tract infection, site not specified; R33.9 Retention of urine, unspecified; I11.0 Hypertensive heart disease with heart failure; E87.6 Hypokalemia; C61 Malignant neoplasm of prostate
CPT/HCPCS: 36415; 74176-TC; 78306-TC; 80048; 80053; 81003; 82784; 83036; 83883; 84155; 84165; 85025; 85610; 85730; 86803; 87086; 87389; 93005; 93010; 99285-25; A9503; G0378; J3370